=== PATIENT | male | born 1970 | race Caucasian/White ===

== ENCOUNTER 2021-02-27 08:34 | Outpatient (REF) | payer OTHER, SELFPAY ==
[2021-02-27 10:59] LABS: MANUAL DIFF FLAG NO
[2021-02-27 11:00] LABS: Basophils Absolute Auto 0.1 X10*3/uL (0.0-0.2); Basophils Percent Auto 1.2 % (0-2); Eosinophils Absolute Auto 0.1 X10*3/uL (0.0-0.4); Eosinophils Percent Auto 2.3 % (0-4); Hematocrit 44.8 % (42-52); Hemoglobin 14.8 g/dl (14.0-18.0); Imm Gran Abs Auto 0.01 X10*3/uL (0.00-0.03); Imm Gran Pct Auto 0.2 % (0.0-0.4); Lymphocytes Absolute Auto 1.7 X10*3/uL (1.2-4.9); Lymphocytes Percent Auto 32.8 % (20-40); Mean Corpuscular Hemoglobin 29.8 pg (27.0-33.0); Mean Corpuscular Volume 90.3 fL (80-98); Mean Platelet Volume 11.2 fL (9.4-12.4); Monocytes Absolute Auto 0.5 X10*3/uL (0.1-1.2); Monocytes Percent Auto 9.6 % (2-11); Neutrophils Absolute Auto 2.8 X10*3/uL (2.0-8.3); Neutrophils Percent Auto 53.9 % (45-73); Platelet Count 267 X10*3/uL (160-400); Red Blood Count 4.96 X10*6/uL (4.60-5.80); Red Cell Distribution Width 13.2 % (11.0-16.0); White Blood Count 5.2 X10*3/uL (4.8-10.8)
[2021-02-27 11:53] LABS: Alanine Aminotransferase 47 U/L (0-40); Albumin Level 4.5 g/dL (3.5-5.0); Alkaline Phosphatase 81 U/L (39-117); Anion Gap 14 (12-20); Aspartate Amino Transferase 30 U/L (5-37); Bilirubin Total 0.6 mg/dL (0.0-1.0); Blood Urea Nitrogen 22 mg/dL (9-16); Calcium 9.4 mg/dL (8.4-10.2); Carbon Dioxide 25 mmol/L (22-29); Chloride 108 mmol/L (96-108); Cholesterol 225 mg/dL; Estimated Glomerular Filt Rate > 60; Glucose Random 85 mg/dL (60-115); HDL Cholesterol 55 mg/dL; LDL Cholesterol Calculated 155 mg/dl; Potassium 4.4 mmol/L (3.3-5.1); Sodium 143 mmol/L (135-145); Total Protein 6.8 g/dL (6.5-8.0); Triglycerides 75 mg/dL
[2021-02-27 12:18] LABS: Prostate Specific Antigen 0.81 ng/mL (<0.05-4.0)
== END 2021-02-27 08:35 | disposition home or self-care (01) ==
LOC: HO.MANLDS 08:34
PROVIDERS: Visit Provider Internal Medicine
DX: Z00.01 Encounter for general adult medical examination with abnormal findings (principal); Z12.5 Encounter for screening for malignant neoplasm of prostate
CPT/HCPCS: 36415; 80053; 80061; 84153; 85025

== ENCOUNTER → 2023-01-03 07:48 | Outpatient (BNVA) | payer MEDICAID, SELFPAY | PROVIDERS: PCP Internal Medicine; Visit Provider Physician Assistant ==

== ENCOUNTER 2023-01-14 12:59 | Outpatient (REF) | payer MEDICAID, SELFPAY ==
[2023-01-15 15:28] LABS: H Pylori Breath Test Negative (Negative)
== END 2023-01-14 13:00 | disposition home or self-care (01) ==
LOC: HO.LNP 12:59
PROVIDERS: PCP Internal Medicine; Visit Provider Physician Assistant Surgical
DX: Z11.2 Encounter for screening for other bacterial diseases (principal); E66.9 Obesity, unspecified; E78.00 Pure hypercholesterolemia, unspecified
CPT/HCPCS: 83013; 99202; 99211

== ENCOUNTER 2023-01-19 07:27 | Outpatient (REF) | payer MEDICAID, SELFPAY ==
--- NOTE | ~2023-01-19 | XR_ITS ---
EXAMINATION: XR CHEST CLINICAL INFORMATION: Obesity. COMPARISON: None available. TECHNIQUE: 2 views of the chest were obtained. FINDINGS: There is elevation of the right hemidiaphragm with right lung base density likely related to atelectasis or scarring however, mass of other etiology cannot be excluded on this study. If patient has had studies at another institution, these would be of help in further evaluation. No pneumothorax or pleural effusion. Heart normal size. No evidence of pulmonary edema. XR/XR chest 2V IMPRESSION: Elevation of the right hemidiaphragm with some right lung base density as described for which comparison with prior studies from outside institution is recommended.
[2023-01-19 07:57] LABS: MANUAL DIFF FLAG NO
[2023-01-19 08:11] LABS: Basophils Absolute Auto 0.1 X10*3/uL (0.0-0.2); Basophils Percent Auto 1.1 % (0-2); Eosinophils Absolute Auto 0.1 X10*3/uL (0.0-0.4); Eosinophils Percent Auto 1.8 % (0-4); Hematocrit 47.3 % (42.0-52.0); Hemoglobin 15.9 g/dl (14.0-18.0); Imm Gran Abs Auto 0.01 X10*3/uL (0.00-0.03); Imm Gran Pct Auto 0.2 % (0.0-0.4); Lymphocytes Absolute Auto 2.1 X10*3/uL (1.2-4.9); Lymphocytes Percent Auto 32.1 % (20-40); Mean Corpuscular HGB Conc 33.6 g/dl (31.0-36.0); Mean Corpuscular Hemoglobin 29.6 pg (27.0-33.0); Mean Corpuscular Volume 88.1 fL (80.0-98.0); Mean Platelet Volume 11.2 fL (9.4-12.4); Monocytes Absolute Auto 0.5 X10*3/uL (0.1-1.2); Monocytes Percent Auto 7.6 % (2-11); Neutrophils Absolute Auto 3.8 x10*3/uL (2.0-8.3); Neutrophils Percent Auto 57.2 % (45-73); Platelet Count 247 X10*3/uL (160-400); Red Blood Count 5.37 X10*6/uL (4.60-5.80); Red Cell Distribution Width 12.2 % (11.0-16.0); White Blood Count 6.6 X10*3/uL (4.8-10.8)
[2023-01-19 08:34] LABS: Estimated Average Glucose 117 mg/dL; Hemoglobin A1c % 5.7 %
[2023-01-19 08:47] LABS: Alanine Aminotransferase 31 U/L (0-40); Albumin Level 4.6 g/dL (3.5-5.0); Alkaline Phosphatase 85 U/L (39-117); Anion Gap 16 (12-20); Aspartate Amino Transferase 26 U/L (5-37); Bilirubin Total 0.9 mg/dL (0.0-1.0); Blood Urea Nitrogen 21 mg/dL (9-16); C Reactive Protein 0.32 mg/dL (< or = 0.50); Calcium 9.9 mg/dL (8.4-10.2); Carbon Dioxide 25 mmol/L (22-29); Chloride 106 mmol/L (96-108); Cholesterol 261 mg/dL; Estimated Glomerular Filt Rate > 60; Glucose Random 91 mg/dL (60-115); HDL Cholesterol 44 mg/dL; Iron 106 mcg/dL (45-160); LDL Cholesterol Calculated 200 mg/dl; Percent Iron Saturation 30 % (15-50); Potassium 4.5 mmol/L (3.3-5.1); Sodium 142 mmol/L (135-145); Total Iron Binding Capacity 356 mcg/dL (228-428); Total Protein 7.2 g/dL (6.5-8.0); Triglycerides 87 mg/dL; Unsaturated Iron Binding 250 ug/dL
[2023-01-19 09:17] LABS: Ferritin 208 ng/mL (20-250); Folate 13.5 ng/mL (> or = 4.0); Insulin 11 uU/mL (2-29); TSH reflex Free T4 2.15 uIU/mL (0.32-4.0); Vitamin B12 712 pg/mL (200-900); Vitamin D 25-OH Total 23.2 ng/mL (>30)
[2023-01-21 15:24] LABS: Calcium (PTHI) 10.3 mg/dL (8.6-10.3); PTHI 68 pg/mL (16-77)
[2023-01-23 17:28] LABS: Zinc 93 mcg/dL (60-130)
[2023-01-25 08:38] LABS: Vitamin A 60 mcg/dL (38-98)
[2023-01-26 16:19] LABS: Vitamin B1 <6 nmol/L (8-30)
== END 2023-01-19 07:28 | disposition home or self-care (01) ==
LOC: HO.LAB 07:27
PROVIDERS: PCP Internal Medicine; Visit Provider Physician Assistant Surgical
DX: E66.9 Obesity, unspecified (principal); E78.00 Pure hypercholesterolemia, unspecified
CPT/HCPCS: 36415; 71046; 80053; 80061; 82306; 82607; 82728; 82746; 83036; 83525; 83540; 83970; 84425; 84443; 84590; 84630; 85025; 86140

== ENCOUNTER → 2023-01-24 15:32 | Outpatient (REF) | payer MEDICAID, SELFPAY ==
--- NOTE | 2023-01-24 15:35 | ECG_ITS ---
Test Reason : OBESITY Blood Pressure : / mmHG Vent. Rate : 073 BPM Atrial Rate : 073 BPM P-R Int : 146 ms QRS Dur : 084 ms QT Int : 368 ms P-R-T Axes : 010 035 032 degrees QTc Int : 405 ms Normal sinus rhythm Normal ECG No previous ECGs available Referred By: Dawson Xiao Electronically Signed By:JR BLANK
== END ==
LOC: HO.CARD 15:32
PROVIDERS: PCP Internal Medicine; Visit Provider Physician Assistant Surgical
DX: E66.9 Obesity, unspecified (principal); E78.00 Pure hypercholesterolemia, unspecified
CPT/HCPCS: 93005

== ENCOUNTER → 2023-01-28 13:53 | Outpatient (BNVA) | payer OTHER, MEDICAID, SELFPAY | PROVIDERS: PCP Internal Medicine; Visit Provider Counselor Mental Health ==

== ENCOUNTER → 2023-02-06 08:55 | Outpatient (BNVA) | payer MEDICAID, SELFPAY | PROVIDERS: PCP Internal Medicine; Visit Provider Physician Assistant Surgical ==

== ENCOUNTER → 2023-02-26 09:16 | Outpatient (BNVA) | payer MEDICAID, SELFPAY | PROVIDERS: PCP Internal Medicine; Referring Provider Physician Assistant Surgical; Visit Provider Dietitian, Registered | DX: E66.9 Obesity, unspecified (principal); Z68.35 Body mass index [BMI] 35.0-35.9, adult | CPT/HCPCS: 97802 ==

== ENCOUNTER 2023-02-28 07:20 | Outpatient (REF) | payer MEDICAID, SELFPAY ==
--- NOTE | ~2023-02-28 | CT_ITS ---
EXAMINATION: CT CHEST WITHOUT CONTRAST CLINICAL INFORMATION: Reason for Exam R93.89 - Abnormal findings on diagnostic imaging of other specified body... COMPARISON: None TECHNIQUE: Multidetector volumetric CT imaging of the chest was done. Axial MIP volume rendering provided. Sagittal and coronal reformatted images were obtained. This CT examination was performed using dose optimization techniques as appropriate, variously including the following: *Automated exposure control *Adjustment of mA and/or kV according to patient size (this includes techniques or standardized protocols for targeted exams where dose is matched to indication/reason for exam; i.e. extremities or head) *Use of iterative reconstruction technique DLP: 252 mGy-cm FINDINGS: CHEST WALL: Unremarkable. UPPER ABDOMEN: There is elevation of right hemidiaphragm and liver AXILLA: No lymphadenopathy. MEDIASTINUM: Heart is normal in size. No mediastinal lymphadenopathy. No hilar lymphadenopathy. There are no coronary artery calcifications or pericardial effusion PLEURA: There is no pleural effusion. OSSEOUS STRUCTURES: Unremarkable. LUNGS: There is atelectasis in the right lower lobe secondary to high-grade position hemidiaphragm There are no lung nodules or consolidations. CT/CT chest wo con - High Res IMPRESSION: Elevation of right hemidiaphragm with atelectasis in the right lower lobe.
== END 2023-02-28 07:21 | disposition home or self-care (01) ==
LOC: HO.CT 07:20
PROVIDERS: PCP Internal Medicine; Visit Provider Physician Assistant Surgical
DX: R93.89 Abnormal findings on diagnostic imaging of other specified body structures (principal)
CPT/HCPCS: 71250

== ENCOUNTER → 2023-03-07 10:00 | Outpatient (BNVA) | payer OTHER, MEDICAID, SELFPAY | PROVIDERS: PCP Internal Medicine; Visit Provider Counselor Mental Health ==

== ENCOUNTER 2023-03-18 08:46 | Outpatient (REF) | payer MEDICAID, SELFPAY | END 2023-03-18 08:47 | disposition home or self-care (01) | LOC: HO.XRAY 08:46 | PROVIDERS: PCP Internal Medicine; Visit Provider Physician Assistant Surgical | DX: E66.9 Obesity, unspecified (principal); E78.00 Pure hypercholesterolemia, unspecified | CPT/HCPCS: 74246 ==

== ENCOUNTER → 2023-03-22 12:11 | Outpatient (BNVA) | payer MEDICAID, SELFPAY | PROVIDERS: PCP Internal Medicine; Visit Provider Physician Assistant Surgical ==

== ENCOUNTER 2023-03-29 09:57 | Outpatient (REF) | payer MEDICAID, SELFPAY ==
--- NOTE | ~2023-03-29 | US_ITS ---
EXAMINATION: US COMPLETE ABDOMEN WITH LIVER ELASTOGRAPHY CLINICAL INFORMATION: Obesity. COMPARISON: None available. TECHNIQUE: Real-time imaging of the abdominal viscera. Noninvasive ultrasound liver fibrosis assessment is performed using Rae ElastPQ point quantification shear wave elastography (2D-SWE) with a C5-2 MHz transducer. Multiple elastography samples are obtained. FINDINGS: PANCREAS: Normal. The visualized pancreatic head and body are normal in appearance. The remainder of the pancreas is obscured from visualization by the overlying bowel gas. ABDOMINAL AORTA: The proximal, middle, and distal aortic segments are normal in caliber. INFERIOR VENA CAVA: Visualized portions are normal. LIVER: The liver demonstrates normal size, contour and increased echogenicity. No focal lesion or intrahepatic biliary duct dilatation. The right lobe measures 13.2 cm in length. The left lobe measures 8.6 cm in length. Portal flow is towards the liver (hepatopetal). Shear wave liver elastography median stiffness is 1.59 m/s (reference: normal median stiffness is 1.3 m/s or less). IQR/median stiffness to assess sampling precision is 0.05 (reference: good quality data set is IQR/median stiffness of 0.15 or less). GALLBLADDER: Normal. The gallbladder is physiologically distended without evidence of stones, sludge, polyps, wall thickening or pericholecystic fluid. COMMON BILE DUCT: Normal in caliber measuring 0.2 cm in diameter. RIGHT KIDNEY: At the upper pole, a 1.9 cm in maximal diameter mildly complex cyst is seen, with fine septation. This shows no mural nodularity or associated color Doppler flow. No hydronephrosis. No renal calculi or focal parenchymal lesions. The kidney measures 11.0 cm in maximum dimension. LEFT KIDNEY: At the upper pole, a 1.2 cm maximal diameter benign, simple parapelvic cyst is seen. No hydronephrosis. No renal calculi or focal parenchymal lesions. The kidney measures 11.7 cm in maximum dimension. SPLEEN: Normal. The spleen measures 11.0 cm in maximum dimension. FREE FLUID: None. US/US abdomen comp w elastography IMPRESSION: 1. Impression 2. Liver elastography: REFERENCE: Society of Radiologists in Ultrasound Liver Stiffness Thresholds (2019): LIVER STIFFNESS THRESHOLDS: *Liver Stiffness equal or less than 1.3 m/s: High probability of being normal. *Liver Stiffness less than 1.7 m/s: In the absence of other known clinical signs, rules out compensated advanced chronic liver disease. *Liver Stiffness 1.7-2.1 m/s: Suggestive of compensated advanced chronic liver disease but need further test for confirmation. *Liver Stiffness over 2.1 m/s: Rules in compensated advanced chronic liver disease. *Liver Stiffness over 2.4 m/s: Suggestive of clinically significant portal hypertension. QUALITY OF DATA SET: *IQR/Median value equal or less than 0.15 implies a quality data set. *IQR/Median value over 0.15 implies a poor quality data set. SIGNIFICANT CHANGE FROM PRIOR EXAM: Significant change if liver stiffness measurement is 10% or greater from prior exam. OTHER CONSIDERATIONS: The stage of liver fibrosis may be overestimated in the setting of acute hepatitis, liver inflammation, elevated liver function tests, hepatic vascular congestion, obstructive cholestasis, non-fasting state, and infiltrative diseases such as amyloidosis and lymphoma. In some patients with NAFLD, the liver stiffness thresholds for compensated advanced chronic liver disease may be lower. In causes other than viral hepatitis and NAFLD, liver stiffness thresholds are not well established.
== END 2023-03-29 09:58 | disposition home or self-care (01) ==
LOC: HO.US 09:57
PROVIDERS: PCP Internal Medicine; Visit Provider Physician Assistant Surgical
DX: E66.9 Obesity, unspecified (principal); E78.00 Pure hypercholesterolemia, unspecified
CPT/HCPCS: 76705; 76981

== ENCOUNTER 2023-04-08 08:54 | Outpatient (AMB) | payer MEDICAID, SELFPAY ==
[2023-04-08 08:56] VITALS: BP 117/74; PULSE 71; O2SAT 96; BMI 34.3
--- NOTE | 2023-04-08 08:56 | A.OFFVIS_ITS ---
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 Father No problems noted. Brother No problems noted. Daughter ADHD Daughter No problems noted. Son ADHD Social History Alcohol intake: current Alcohol intake frequency: a few times a week Patient Tobacco Use Status: Never used Tobacco Coding Diagnoses
--- NOTE | 2023-04-08 09:04 | A.OFFVIS_ITS ---
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 He entered the surgical weight loss program 01/14/2023 at a weight of 258 lb/BMI of 38.0 with a comorbidity of obstructive sleep apnea and hypercholesterolemia. He is congratulated on his interval weight loss and presents today with a weight of 232 lb/BMI 34.3. Patient is interested in a laparoscopic sleeve gastrectomy. He denies prior intra abdominal operations. Pre op work up completed as follows: SWL classes:? 04/23 BH appts: cleared-03/07/23 ? ? RD appts: cleared-02/26/23 Labs: 01/19/23-low B1, D H. pylori: 01/14/23-neg CXR: 01/19/23-RLL atel/scar/?mass - CT ordered 02/28/23-atelectasis due to elevated hemidiaphragm EK01/24/23-normal ABD U/S: 03/29/23 pending read UGI: 03/18/23-normal GERD score: 8 VALE score: 5 ESS score: 3 QOL score: 91?? PFSH Surgical History Hx of sinus surgery Hx of wisdom tooth extraction Family History Mother No problems noted. Father No problems noted. Brother No problems noted. Daughter ADHD Daughter No problems noted. Son ADHD Social History Alcohol intake: current Alcohol intake frequency: a few times a week Patient Tobacco Use Status: Never used Tobacco Review of Systems Const All systems reviewed & are unremarkable except as noted in HPI and below Reports as per HPI Physical Exam Vital Signs: Last Vital Signs Pulse 71 04/08/23 08:56 BP 117/74 04/08/23 08:56 Pulse Ox 96 04/08/23 08:56 Oxygen Delivery Method Room Air 04/08/23 08:56 BMI result Body Mass Index 34.3 The patient is non-toxic & in good spirits NC/AT, PERRLA, EOMI Mood, affect & judgment all appear appropriate Sclera anicteric conjunctiva pink and moist Oropharynx is clear with no aphthous ulcers, Mallampati class 4, mucous membranes moist Neck is supple with no masses, adenopathy or bruits Thyroid is nontender and free of dominant masses Heart is regular, normal S1-S2 no rubs or murmurs Lungs are clear and equal anteriorly with no audible wheezing, rubs or dullness to percussion Abdomen is overweight with no demonstrable hernias. No HSM, rebound, rigidity, guarding, masses or bruits are present. Rectal exam is deferred Skin has good turgor and is free of rashes Extremities free of cyanosis clubbing edema Results Reviewed Results Reviewed: Labs from 01/19/2023 Hemoglobin 15.9 with normal indices and normal iron studies, white blood cell count 6.6 with normal differential, platelet count 247k Cholesterol is elevated at 261 Vitamin B1 and vitamin D were low in have been treated BUN 21, creatinine 0.97; electrolytes and LFTs within normal parameters Hemoglobin A1c 5.7 Diagnostic imaging 03/29 Upper GI showed no GERD nor hiatal hernia Chest x-ray showed elevated right hemidiaphragm with atelectasis and follow-up chest CT showed no evidence of mass, just chronic right hemidiaphragm elevation Abdominal ultrasound showedNAFLD in final impression is pending as of today's visit Assessment & Plan Assessment & Plan (1) Obesity (BMI 30-39.9): Code(s): E66.9 - Obesity, unspecified (2) MARY (obstructive sleep apnea): Comment: [place] [facility] [place]s): G47.33 - Obstructive sleep apnea (adult) (pediatric) (3) Hypercholesterolemia: Code(s): E78.00 - Pure hypercholesterolemia, unspecified (4) Class 2 obesity in adult: Code(s): E66.9 - Obesity, unspecified (5) Abnormal chest xray: Code(s): R93.89 - Abnormal findings on diagnostic imaging of other specified body structures Plan The patient is congratulated on his healthy lifestyle changes and subsequent when loss. The option of continued medical management was discussed but declined by the patient noting his prior history of weight regain. Options of gastric bypass, sleeve gastrectomy and 2nd opinion were discussed. The patient would like to proceed with a laparoscopic sleeve gastrectomy with p ossible hiatal hernia repair, intraoperative upper endoscopy and possible ventral hernia repair. I reviewed the inherent risks of this procedure which include, but are not limited to: Bleeding that could require another operation or blood transfusion; the inherent risks of transfusion reaction infectious disease from blood transfusions; the risk of staple line leaks that could cause sepsis, multi- system organ failure and ; the risk of mesenteric or deep vein thrombosis of the lower extremities that could cause a fatal pulmonary embolism was reviewed; the risk of GERD that could require conversion to gastric bypass was discussed; the risk of recurrent hiatal hernia, especially in the setting of weight regain was reviewed. The risk of weight regain if maladaptive eating and sedentary behavior continue was discussed. The importance of proper diet and increased activity to augment surgical weight loss and the fact that no operation would result in weight loss of poor dietary decisions and sedentary behavior are resumed were discussed at length and apparently understood. The patient had the option of having a systems analyst developer present and declined this option. The patient will have a follow-up 30 minute visit with me as per his insurance requirement; he will write down and ask any questions between now and then. He has a follow-up with the PA. The importance of the liver shrinking diet was reviewed. Coding Level of Care Code Est Pt Level 4 (19963) Diagnoses Obesity (BMI 30-39.9) E66.9 MARY (obstructive sleep apnea) G47.33 Hypercholesterolemia E78.00 Class 2 obesity in adult E66.9 Abnormal chest xray R93.89
== END 2023-04-08 09:39 | disposition home or self-care (01) ==
PROVIDERS: PCP Internal Medicine; Visit Provider Surgery
DX: E66.9 Obesity, unspecified (principal); Z68.34 Body mass index [BMI] 34.0-34.9, adult; G47.33 Obstructive sleep apnea (adult) (pediatric); E78.00 Pure hypercholesterolemia, unspecified; R93.89 Abnormal findings on diagnostic imaging of other specified body structures
CPT/HCPCS: 99214

== ENCOUNTER → 2023-04-08 08:54 | Outpatient (BNVA) | payer MEDICAID, SELFPAY | PROVIDERS: PCP Internal Medicine; Visit Provider Surgery | DX: E66.9 Obesity, unspecified (principal); G47.33 Obstructive sleep apnea (adult) (pediatric); E78.00 Pure hypercholesterolemia, unspecified; R93.89 Abnormal findings on diagnostic imaging of other specified body structures; Z68.34 Body mass index [BMI] 34.0-34.9, adult | CPT/HCPCS: 99212 ==

== ENCOUNTER 2023-05-17 07:44 | Outpatient (AMB) | payer MEDICAID, SELFPAY ==
--- NOTE | 2023-05-17 07:45 | A.OFFVIS_ITS ---
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: No Allergies No Known Allergies [No Known Allergies*] Allergy (Verified 05/17/23 07:45) Medication List - Last Reconciled 05/17/23 by Eric Snow MD cholecalciferol (vitamin D3) 125 mcg PO DAILY thiamine HCl (vitamin B1) 100 mg PO DAILY 90 days HPI HPI Comments History of Present Illness Details Telehealth Telehealth Location of provider rendering services: practice address Location of patient: address on file Patient Identification confirmed using: Name, : Yes Telehealth method: video Patient verbally consented to treatment: Yes Patient verbally consented to billing insurance company: Yes Patient informed of any privacy concerns related to visit: Yes The patient is a 52-year-old gentleman with a lifelong struggle with obesity who reports a heaviest weight of 270 lb earlier this year. He entered the surgical weight loss program 01/14/2023 at a weight of 258 lb/BMI of 38.0 with a comorbidity of obstructive sleep apnea and hypercholesterolemia. We discussed interval weight gain reports a weight of 236.4 lb/BMI 35.0. This is up 4 lbs from his last office visit, however, the patient notes that there was a 2 lb difference which was higher on his home scale verses the office [place] weights/BMI, and he acknowledged that his exercises currently sporadic and that he is not been following the diet at this point. We again reviewed the importance of diet and exercise to optimize surgical weight loss. We discussed the fact that he is not currently engaged in following the diet nor exercise regime. He notes that he has instructions regarding his meal plan and will resume and refocus and remains interested in surgical weight loss rather than medical weight loss. Patient is interested in a laparoscopic sleeve gastrectomy. He denies prior intra abdominal operations. Pre op work up completed as follows: SWL classes:? 04/23 BH appts: cleared-03/07/23 ? ? RD appts: cleared-02/26/23 Labs: 01/19/23-low B1, D H. pylori: 01/14/23-neg CXR: 01/19/23-RLL atelectasis/scar/?mass - CT chest : atelectasis due to elevated hemidiaphragm EK01/24/23-normal ABD U/S: 03/29/23 NAFLD, right renal cyst UGI: 03/18/23-no NN nor GERD GERD score: 8 VALE score: 5 ESS score: 3 QOL score: 91??Current meal plan includes: 3 Premier Protein shakes ([employer], [employer], [employer]) First shake (1 scoop in 8 oz low fat unsweetened almond milk, may add ice if you wish) at 8am-10am Second shake (1 scoop in 8 oz unsweetened almond milk) at 12pm-2pm 1 protein bar ([employer] Perfect bars at [employer], [employer], or [employer]) at 3pm-5pm. Dinner at 6pm (8 forks of protein and 8 forks of salad/vegetables). Another shake with 1 scoop in 8 oz unsweetened almond milk at 8pm-10pm. Drinking 64 oz of water Current exercise plan includes: Not currently exercising elliptical, bike, 300-400 calories, 4-5 days per week. PFSH Surgical History Hx of sinus surgery Hx of wisdom tooth extraction Family History Mother No problems noted. Father No problems noted. Brother No problems noted. Daughter ADHD Daughter No problems noted. Son ADHD Social History Alcohol intake: current Alcohol intake frequency: a few times a week Patient Tobacco Use Status: Never used Tobacco Review of Systems Const All systems reviewed & are unremarkable except as noted in HPI and below Reports as per HPI Physical Exam On telehealth visit, the patient is comfortable and nontoxic He appears to be in no acute distress Results Reviewed Results Reviewed: Labs from 01/19/2023 Hemoglobin 15.9 with normal indices and normal iron studies, white blood cell count 6.6 with normal differential, platelet count 247k Cholesterol is elevated at 261 Vitamin B1 and vitamin D were low in have been treated BUN 21, creatinine 0.97; electrolytes and LFTs within normal parameters Hemoglobin A1c 5.7 Diagnostic imaging 03/29 Upper GI showed no GERD nor hiatal hernia Chest x-ray showed elevated right hemidiaphragm with atelectasis and follow-up chest CT showed no evidence of mass, just chronic right hemidiaphragm elevation Abdominal ultrasound showedNAFLD in final impression is pending as of today's visit Assessment & Plan Assessment & Plan (1) Class 2 obesity in adult: Code(s): E66.9 - Obesity, unspecified (2) MARY (obstructive sleep apnea): Comment: On CPAP, [place] 2018 [place] [facility] [place] Code(s): G47.33 - Obstructive sleep apnea (adult) (pediatric) (3) Hypercholesterolemia: Code(s): E78.00 - Pure hypercholesterolemia, unspecified (4) Obesity (BMI 30-39.9): Code(s): E66.9 - Obesity, unspecified (5) Diaphragm dysfunction: Code(s): J98.6 - Disorders of diaphragm (6) Abnormal chest xray: Code(s): R93.89 - Abnormal findings on diagnostic imaging of other specified body structures Plan The patient will resume his meal plan as outlined above. He will continue to focus on exercise. We will touch base with him in 2 weeks for a 30 minute since he acknowledges weight gain and that he is not currently following the diet or exercise program. Telehealth Telehealth Location of provider rendering services: practice address Location of patient: address on file Patient Identification confirmed using: Name, : Yes Telehealth method: voice only Patient verbally consented to treatment: Yes Patient verbally consented to billing insurance company: Yes Patient informed of any privacy concerns related to visit: Yes Coding Level of Care Code Tele New Pt Level 4 (35706) Diagnoses Class 2 obesity in adult E66.9 MARY (obstructive sleep apnea) G47.33 Hypercholesterolemia E78.00 Obesity (BMI 30-39.9) E66.9 Diaphragm dysfunction J98.6 Abnormal chest xray R93.89
== END 2023-05-17 09:07 | disposition home or self-care (01) ==
LOC: HO.HBS 07:44
PROVIDERS: PCP Internal Medicine; Visit Provider Surgery
DX: E66.9 Obesity, unspecified (principal); Z68.35 Body mass index [BMI] 35.0-35.9, adult; G47.33 Obstructive sleep apnea (adult) (pediatric); E78.00 Pure hypercholesterolemia, unspecified; J98.6 Disorders of diaphragm; R93.89 Abnormal findings on diagnostic imaging of other specified body structures
CPT/HCPCS: 99214

== ENCOUNTER → 2023-05-17 07:44 | Outpatient (BNVA) | payer MEDICAID, SELFPAY | PROVIDERS: PCP Internal Medicine; Visit Provider Surgery ==

== ENCOUNTER 2023-05-24 08:19 | Outpatient (AMB) | payer MEDICAID, SELFPAY ==
--- NOTE | 2023-05-24 08:21 | MHC.OFFVISWM ---
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 Allergies No Known Allergies [No Known Allergies*] Allergy (Verified 05/24/23 08:22) Medication List - Last Reconciled 05/24/23 by Eric Snow MD cholecalciferol (vitamin D3) 125 mcg PO DAILY thiamine HCl (vitamin B1) 100 mg PO DAILY 90 days HPI HPI Comments History of Present Illness Details Telehealth Telehealth Location of provider rendering services: practice address Location of patient: address on file Patient Identification confirmed using: Name, : Yes Telehealth method: video Patient verbally consented to treatment: Yes Patient verbally consented to billing insurance company: Yes Patient informed of any privacy concerns related to visit: Yes The patient is a 52-year-old gentleman with a lifelong struggle with obesity who reports a heaviest weight of 270 lb earlier this year. He entered the surgical weight loss program 01/14/2023 at a weight of 258 lb/BMI of 38.0 with a comorbidity of obstructive sleep apnea and hypercholesterolemia. We discussed interval weight gain last visit when he reported a weight of 234 lb/BMI 35.0 for today's tele visit 05/24/2023.,\ He notes that this is his 3rd bout with COVID and, as expected, it is impacted his ability to exercise. Prior to this, he was both walk and using an exercise bike. Current meal plan includes: 3 Premier Protein shakes ([employer], [employer], [employer]) First shake (1 scoop in 8 oz low fat unsweetened almond milk, may add ice if you wish) at 8am-10am Second shake (1 scoop in 8 oz unsweetened almond milk) at 12pm-2pm 1 protein bar (Zone Perfect bars at [employer], [employer], or [employer]) at 3pm-5pm. Dinner at 6pm (8 forks of protein and 8 forks of salad/vegetables). Another shake with 1 scoop in 8 oz unsweetened almond milk at 8pm-10pm. Drinking 64 oz of water Exercise plan: Bike, walking We discussed the fact that he has resumed the meal plan & was exercising until COVID. He remains interested in surgical weight loss rather than medical weight loss. Patient is interested in a laparoscopic sleeve gastrectomy. He denies prior intra abdominal operations. Pre op work up completed as follows: SWL classes:? 04/23 BH appts: cleared-03/07/23 ? ? RD appts: cleared-02/26/23 Labs: 01/19/23-low B1, D H. pylori: 01/14/23-neg CXR: 01/19/23-RLL atelectasis/scar/?mass - CT chest : atelectasis due to elevated hemidiaphragm EK01/24/23-normal ABD U/S: 03/29/23 NAFLD, right renal cyst UGI: 03/18/23-no NN nor GERD GERD score: 8 VALE score: 5 ESS score: 3 QOL score: 91?? Current meal plan includes: 3 Premier Protein shakes ([employer], [employer], [employer]) First shake (1 scoop in 8 oz low fat unsweetened almond milk, may add ice if you wish) at 8am-10am Second shake (1 scoop in 8 oz unsweetened almond milk) at 12pm-2pm 1 protein bar (Zone Perfect bars at [employer], [facility], or [employer]) at 3pm-5pm. Dinner at 6pm (8 forks of protein and 8 forks of salad/vegetables). Another shake with 1 scoop in 8 oz unsweetened almond milk at 8pm-10pm. Drinking 64 oz of water Current exercise plan includes: elliptical, bike, 300-400 calories, 4-5 days per week, but currently only walking d/t COVID [facility] Surgical History Hx of sinus surgery Hx of wisdom tooth extraction Family History Mother No problems noted. Father No problems noted. Brother No problems noted. Daughter ADHD Daughter No problems noted. Son ADHD Social History Alcohol intake: current Alcohol intake frequency: a few times a week Patient Tobacco Use Status: Never used Tobacco Review of Systems Const All systems reviewed & are unremarkable except as noted in HPI and below Reports as per HPI Physical Exam On exam, the patient appears nontoxic and he is in no acute respiratory distress Video visit today included permission from the patient Results Reviewed Results Reviewed: Labs from 01/19/2023 Hemoglobin 15.9 with normal indices and normal iron studies, white blood cell count 6.6 with normal differential, platelet count 247k Cholesterol is elevated at 261 Vitamin B1 and vitamin D were low in have been treated BUN 21, creatinine 0.97; electrolytes and LFTs within normal parameters Hemoglobin A1c 5.7 Diagnostic imaging 03/29 Upper GI showed no GERD nor hiatal hernia Chest x-ray showed elevated right hemidiaphragm with atelectasis and follow-up chest CT showed no evidence of mass, just chronic right hemidiaphragm elevation Abdominal ultrasound showedNAFLD in final impression is pending as of today's visit Assessment & Plan Assessment & Plan (1) Class 2 obesity in adult: Code(s): E66.9 - Obesity, unspecified (2) MARY (obstructive sleep apnea): Comment: On CPAP, Dx 2018 [place] [facility] [place] Code(s): G47.33 - Obstructive sleep apnea (adult) (pediatric) (3) Hypercholesterolemia: Code(s): E78.00 - Pure hypercholesterolemia, unspecified (4) Abnormal chest xray: Code(s): R93.89 - Abnormal findings on diagnostic imaging of other specified body structures (5) Diaphragm dysfunction: Code(s): J98.6 - Disorders of diaphragm (6) Obesity (BMI 30-39.9): Code(s): E66.9 - Obesity, unspecified Plan The patient is congratulated on his ongoing healthy lifestyle changes and he is 1 lb weight from his weight loss goal of 233 lb. His unfortunate 3rd infection with COVID is challenging at this point, but I believe he has made enough progress that we can submit for insurance. We briefly reviewed the risks of a laparoscopic sleeve gastrectomy, possible hiatal hernia repair, intraoperative upper endoscopy, ventral hernia repair and possible open operation. The importance of hydration to prevent DVT and fatal PE was reviewed. Activity restrictions were reviewed and I have recommended the patient notify his employer that he will likely need between 1-2 weeks out which should include the 2 day bowel prep. The importance of following the meal plan and engaging in activity/exercise to optimize and promote surgical weight loss was reviewed. The patient seemed understand and would like to proceed. Second opinion was discussed but declined. Time spent on video in reviewing records: 26 minute Telehealth Telehealth Location of provider rendering services: practice address Location of patient: address on file Patient Identification confirmed using: Name, : Yes Telehealth method: voice only Patient verbally consented to treatment: Yes Patient verbally consented to billing insurance company: Yes Patient informed of any privacy concerns related to visit: Yes Coding Level of Care Code Tele Est Pt Level 4 (63886) Diagnoses Class 2 obesity in adult E66.9 MARY (obstructive sleep apnea) G47.33 Hypercholesterolemia E78.00 Abnormal chest xray R93.89 Diaphragm dysfunction J98.6 Obesity (BMI 30-39.9) E66.9
== END 2023-05-24 09:25 | disposition home or self-care (01) ==
PROVIDERS: PCP Internal Medicine; Visit Provider Surgery
DX: E66.9 Obesity, unspecified (principal); Z68.35 Body mass index [BMI] 35.0-35.9, adult; G47.33 Obstructive sleep apnea (adult) (pediatric); E78.00 Pure hypercholesterolemia, unspecified; R93.89 Abnormal findings on diagnostic imaging of other specified body structures; J98.6 Disorders of diaphragm
CPT/HCPCS: 99214

== ENCOUNTER → 2023-05-24 08:19 | Outpatient (BNVA) | payer MEDICAID, SELFPAY | PROVIDERS: PCP Internal Medicine; Visit Provider Surgery | DX: E66.9 Obesity, unspecified (principal); G47.33 Obstructive sleep apnea (adult) (pediatric); E78.00 Pure hypercholesterolemia, unspecified; J98.6 Disorders of diaphragm; R93.89 Abnormal findings on diagnostic imaging of other specified body structures ==

== ENCOUNTER 2023-06-07 10:01 | Outpatient (AMB) | payer MEDICAID, SELFPAY ==
--- NOTE | 2023-06-07 09:43 | A.OFFVIS_ITS ---
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 meal plan: Premier protein shakes meal Drinkin oz daily Exercise: baseball, pickleball treadmill 2 x per week, 400 calories. PFSH Surgical History Hx of sinus surgery Hx of wisdom tooth extraction Family History Mother No problems noted. Father No problems noted. Brother No problems noted. Daughter ADHD Daughter No problems noted. Son ADHD Social History Alcohol intake: current Alcohol intake frequency: a few times a week Patient Tobacco Use Status: Never used Tobacco Assessment & Plan Assessment & Plan (1) Obesity (BMI 30-39.9): Code(s): E66.9 - Obesity, unspecified Plan: 1. Start this meal plan on 07/12/23, approximately 2 weeks prior to surgery. Using Premier Protein powder and 8 oz unsweetened almond milk per shake: 8am-10am, 1 and 1/2 scoops 11 am-1pm, 1 and 1/2 scoops 3pm-5pm, 1 scoop 6pm-8pm, 1 scoop 9pm-11pm, 1 scoop 2. Drink at least 64 oz fluids daily. NO SODA OR JUICE. NO CAFFEINE 3. Continue to take your vitamins as you have been doing 4. No ALCOHOLIC beverages 5. No Advil, Motirn, Aleve or NSAIDS 6. Midnight on the night before surgery, nothing by mouth to eat or drink except as specifically advised by your surgeon for medications in the morning with a small sip of water. 7. Text me if you have any questions or concerns. [phone] Telehealth Telehealth Location of provider rendering services: practice address Location of patient: address on file Patient Identification confirmed using: Name, : Yes Telehealth method: video Patient verbally consented to treatment: Yes Patient verbally consented to billing insurance company: Yes Patient informed of any privacy concerns related to visit: Yes Minutes spent on Phone/Video with Pt.: 15 Coding Level of Care Code Tele Est Pt Level 3 (69463) Diagnoses Obesity (BMI 30-39.9) E66.9 Time Spent (min) 20
[2023-06-07 09:44] VITALS: BMI 34.7
== END 2023-06-07 10:03 | disposition home or self-care (01) ==
LOC: HO.HBS 10:01
PROVIDERS: PCP Internal Medicine; Visit Provider Physician Assistant Surgical
DX: E66.9 Obesity, unspecified (principal)
CPT/HCPCS: 99213

== ENCOUNTER → 2023-06-07 10:01 | Outpatient (BNVA) | payer MEDICAID, SELFPAY | PROVIDERS: PCP Internal Medicine; Visit Provider Physician Assistant Surgical ==

== ENCOUNTER 2023-06-20 10:50 | Outpatient (AMB) | payer MEDICAID, SELFPAY ==
--- NOTE | 2023-06-20 10:53 | MHC.OFFVISWM ---
Intake VS Expanded 06/20/23 11:03 BP 114/75 Blood Pressure Location Rt brachial Pulse 79 Pulse Source Pulse Oximeter Temp 97.6 F Temperature Source Tympanic Pulse Oximetry 96 Oxygen Delivery Method Room Air Height 5 ft 9 in Weight 236 lb BMI 34.8 Body Fat % 96 Body Fat Mass 71.2 Fat Free Mass 164.6 Visceral Fat Rating 16.0 Body Water % 50.5 Body Water Mass 119.0 Muscle Mass/Score 156.6 Basal Metabolic Rate/Score 2,224 Intake Visit Reasons: (OV) Pre Op LSG 07/10/23 Station Superintendent Required: No Sole Stapler Welt: Sole Stapler Welt offered & declined Allergies No Known Allergies [No Known Allergies*] Allergy (Verified 06/20/23 10:57) HPI HPI Comments History of Present Illness Details The patient is a 52-year-old gentleman with a lifelong struggle with obesity who reports a heaviest weight of 270 lb earlier this year. He entered the surgical weight loss program 01/14/2023 at a weight of 258 lb/BMI of 38.0 with a comorbidity of obstructive sleep apnea and hypercholesterolemia. He is congratulated on his interval weight loss and presents today with a weight of 236.0 lb/BMI 34.9 representing a 22 lb weight loss since entering the program. Patient is interested in a laparoscopic sleeve gastrectomy. He has received liver-shrinking diet instruction; pre-op labs ordered & prescriptions were sent to the pt's pharmacy yesterday. He denies prior intra abdominal operations. GERD score: 8 VALE score: 5 ESS score: 3 QOL score: 91?? Pre op work up completed as follows: SWL classes:? 04/23 BH appts: cleared-03/07/23 ? ? RD appts: cleared-02/26/23 Labs: 01/19/23-low B1, D H. pylori: 01/14/23-neg CXR: 01/19/23-RLL atelectasis/scar/?mass - CT chest : atelectasis due to elevated hemidiaphragm EK01/24/23-normal ABD U/S: 03/29/23 NAFLD, right renal cyst UGI: 03/18/23-no NN nor GERD PFSH Surgical History Hx of sinus surgery Hx of wisdom tooth extraction Family History Mother No problems noted. Father No problems noted. Brother No problems noted. Daughter ADHD Daughter No problems noted. Son ADHD Social History Alcohol intake: current Alcohol intake frequency: a few times a week Patient Tobacco Use Status: Never used Tobacco Physical Exam On exam he is non-toxic He is in no acute distress He is comfortable He is having no respiratory distress Abd is obese soft, NT hernia ____ Results Reviewed Results Reviewed: Labs from 01/19/2023 Hemoglobin 15.9 with normal indices and normal iron studies, white blood cell count 6.6 with normal differential, platelet count 247k Cholesterol is elevated at 261 Vitamin B1 and vitamin D were low in have been treated BUN 21, creatinine 0.97; electrolytes and LFTs within normal parameters Hemoglobin A1c 5.7 Diagnostic imaging 03/29 Upper GI showed no GERD nor hiatal hernia Chest x-ray showed elevated right hemidiaphragm with atelectasis and follow-up chest CT showed no evidence of mass, just chronic right hemidiaphragm elevation Abdominal ultrasound showed NAFLD borderline liver elastography at 1.6 but no HSM Assessment & Plan Assessment & Plan (1) Obesity (BMI 30-39.9): Code(s): E66.9 - Obesity, unspecified (2) Hypercholesterolemia: Code(s): E78.00 - Pure hypercholesterolemia, unspecified (3) MARY (obstructive sleep apnea): Comment: On CPAP, Dx 2018 at [facility] [place] Code(s): G47.33 - Obstructive sleep apnea (adult) (pediatric) (4) Abnormal chest xray: Code(s): R93.89 - Abnormal findings on diagnostic imaging of other specified body structures (5) Class 2 obesity in adult: Code(s): E66.9 - Obesity, unspecified Plan The pt is congratulated on his ongoing life-style changes & weight loss. Options including continued medical management, 2nd opinion versus bariatric surgery, including gastric bypass or sleeve gastrectomy was reviewed. The patient seemed understand his options and would like to proceed with a laparoscopic sleeve gastrectomy, possible hiatal hernia repair, intraoperative upper endoscopy, possible ventral hernia repair. I reviewed the inherent risks of this procedure which include, but are not limited to: Bleeding that could require another operation or blood transfusion; the inherent risks of transfusion reaction infectious disease from blood transfusions; the risk of staple line leaks that could cause sepsis, multi-system organ failure and ; the risk of mesenteric or deep vein thrombosis of the lower extremities that could cause a fatal pulmonary embolism was reviewed; the risk of GERD that could require conversion to gastric bypass was discussed; the risk of recurrent hiatal hernia, especially in the setting of weight regain was reviewed. The risk of weight regain if maladaptive eating and sedentary behavior continue was discussed. The importance of proper diet and increased activity to augment surgical weight loss and the fact that no operation would result in weight loss of poor dietary decisions and sedentary behavior are resumed were discussed at length and apparently understood. The patient had the option of having a shift supervisor film processing present and declined this option. Risks of urinary retention were also discussed and the possible need for Hansen catheter, but the patient is having absolutely no symptoms of BPH so this is unlikely. The importance of adhering to the liver shrinking diet was discussed; bowel prep and typical perioperative/postoperative course including the importance of early ambulation, hydration, postoperative celebrate 4 in 1 protein shakes, postoperative activity restrictions to minimize risk of incisional hernia were all discussed and apparently understood. 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 The importance of 60 oz of water and protein shake sickle was reviewed. Patient is advised to purchase his protein shakes today. Patient was provided with a business card having my cell phone number. The patient's insurance required a 90 day script for PPI which was sent to his pharmacy and the patient notified. I reminded the patient that I will be out of the office for 2 week time frame and if he needs has questions or needs assistance during that time, he should contact the office or text Dawson Xiao PA-C who has been helping with his bariatric workup and meal plan. 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 He seemed understand the importance, options and his questions seemed to be satisfactorily answered. Orders: Orders Comprehensive Met. Panel 06/19/23 E66.9 - Obesity, unspecified, E78.00 - Pure hypercholesterolemia, unspecified, G47.33 - Obstructive sleep apnea (adult) (pediatric), J98.6 - Disorders of diaphragm Hemoglobin A1c 06/19/23 E66.9 - Obesity, unspecified, E78.00 - Pure hypercholesterolemia, unspecified, G47.33 - Obstructive sleep apnea (adult) (pediatric), J98.6 - Disorders of diaphragm Prothrombin Time INR 06/19/23 E66.9 - Obesity, unspecified, E78.00 - Pure hypercholesterolemia, unspecified, G47.33 - Obstructive sleep apnea (adult) (pediatric), J98.6 - Disorders of diaphragm Lipid Panel 06/19/23 E66.9 - Obesity, unspecified, E78.00 - Pure hypercholesterolemia, unspecified, G47.33 - Obstructive sleep apnea (adult) (pediatric), J98.6 - Disorders of diaphragm PTHI 06/19/23 E66.9 - Obesity, unspecified, E78.00 - Pure hypercholesterolemia, unspecified, G47.33 - Obstructive sleep apnea (adult) (pediatric), J98.6 - Disorders of diaphragm Vitamin D 25-OH Total 06/19/23 E66.9 - Obesity, unspecified, E78.00 - Pure hypercholesterolemia, unspecified, G47.33 - Obstructive sleep apnea (adult) (pediatric), J98.6 - Disorders of diaphragm Zinc 06/19/23 E66.9 - Obesity, unspecified, E78.00 - Pure hypercholesterolemia, unspecified, G47.33 - Obstructive sleep apnea (adult) (pediatric), J98.6 - Disorders of diaphragm TSH reflex Free T4 06/19/23 E66.9 - Obesity, unspecified, E78.00 - Pure hypercholesterolemia, unspecified, G47.33 - Obstructive sleep apnea (adult) (pediatric), J98.6 - Disorders of diaphragm IRON PROFILE 06/19/23 E66.9 - Obesity, unspecified, E78.00 - Pure hypercholesterolemia, unspecified, G47.33 - Obstructive sleep apnea (adult) (pediatric), J98.6 - Disorders of diaphragm Vitamin A 06/19/23 E66.9 - Obesity, unspecified, E78.00 - Pure hypercholesterolemia, unspecified, G47.33 - Obstructive sleep apnea (adult) (pediatric), J98.6 - Disorders of diaphragm Type and Screen 10/04/23 E66.9 - Obesity, unspecified, E78.00 - Pure hypercholesterolemia, unspecified, G47.33 - Obstructive sleep apnea (adult) (pediatric), J98.6 - Disorders of diaphragm Vitamin B1 06/19/23 E66.9 - Obesity, unspecified, E78.00 - Pure hypercholesterolemia, unspecified, G47.33 - Obstructive sleep apnea (adult) (pediatric), J98.6 - Disorders of diaphragm C Reactive Protein 06/19/23 E66.9 - Obesity, unspecified, E78.00 - Pure hypercholesterolemia, unspecified, G47.33 - Obstructive sleep apnea (adult) (pediatric), J98.6 - Disorders of diaphragm Partial Thromboplastin Time 06/19/23 E66.9 - Obesity, unspecified, E78.00 - Pure hypercholesterolemia, unspecified, G47.33 - Obstructive sleep apnea (adult) (pediatric), J98.6 - Disorders of diaphragm Vitamin B12 06/19/23 E66.9 - Obesity, unspecified, E78.00 - Pure hypercholesterolemia, unspecified, G47.33 - Obstructive sleep apnea (adult) (pediatric), J98.6 - Disorders of diaphragm Complete Blood Count Auto Diff 06/19/23 E66.9 - Obesity, unspecified, E78.00 - Pure hypercholesterolemia, unspecified, G47.33 - Obstructive sleep apnea (adult) (pediatric), J98.6 - Disorders of diaphragm Ferritin 06/19/23 E66.9 - Obesity, unspecified, E78.00 - Pure hypercholesterolemia, unspecified, G47.33 - Obstructive sleep apnea (adult) (pediatric), J98.6 - Disorders of diaphragm Medications: New polyethylene glycol 3350 (Miralax) Take 7 packets 2 days before surgery and 7 packets 1 day before surgery. Mix each packet with 8 oz's of water before surgery. 14 packets 0RF pantoprazole 40 mg PO QAM 30 days 30 tabs 2RF sucralfate 10 mL PO BID 30 days 600 mL 2RF acetaminophen 500 mg (15 mL) PO Q6H PRN 237 mL 2RF fever or pain pantoprazole 40 mg PO DAILY 90 days 90 tabs 0RF ondansetron HCl 4 mg PO Q6H PRN 20 tabs 0RF nausea and vomiting Coding Level of Care Code Est Pt Level 4 (78844) Diagnoses Obesity (BMI 30-39.9) E66.9 Hypercholesterolemia E78.00 MARY (obstructive sleep apnea) G47.33 Abnormal chest xray R93.89 Class 2 obesity in adult E66.9
[2023-06-20 11:03] VITALS: BP 114/75; PULSE 79; TEMP 36.4; O2SAT 96; BMI 34.8
== END 2023-06-20 11:52 | disposition home or self-care (01) ==
PROVIDERS: PCP Internal Medicine; Visit Provider Surgery
DX: E66.9 Obesity, unspecified (principal); E78.00 Pure hypercholesterolemia, unspecified; G47.33 Obstructive sleep apnea (adult) (pediatric); R93.89 Abnormal findings on diagnostic imaging of other specified body structures
CPT/HCPCS: 99214

== ENCOUNTER → 2023-06-20 10:50 | Outpatient (BNVA) | payer MEDICAID, SELFPAY | PROVIDERS: PCP Internal Medicine; Visit Provider Surgery | DX: E66.9 Obesity, unspecified (principal); Z68.34 Body mass index [BMI] 34.0-34.9, adult; E78.00 Pure hypercholesterolemia, unspecified; G47.33 Obstructive sleep apnea (adult) (pediatric); R93.89 Abnormal findings on diagnostic imaging of other specified body structures; Z99.89 Dependence on other enabling machines and devices | CPT/HCPCS: 99212 ==

== ENCOUNTER → 2023-07-09 09:10 | Outpatient (BNV) | payer MEDICAID, SELFPAY | PROVIDERS: Admitting Provider Surgery; PCP Internal Medicine; Visit Provider Surgery | DX: E66.9 Obesity, unspecified (principal); Z68.34 Body mass index [BMI] 34.0-34.9, adult | CPT/HCPCS: 43659; 43775; 99024 ==

== ENCOUNTER 2023-07-09 14:06 | Inpatient (IN) | payer MEDICAID, SELFPAY ==
[2023-06-21 10:04] VITALS: BMI 34.8
[2023-07-06 08:26] LABS: MANUAL DIFF FLAG NO
[2023-07-06 08:54] LABS: Basophils Absolute Auto 0.1 X10*3/uL (0.0-0.2); Eosinophils Absolute Auto 0.1 X10*3/uL (0.0-0.4); Eosinophils Percent Auto 1.1 % (0-4); Hematocrit 46.8 % (42.0-52.0); Hemoglobin 15.7 g/dl (14.0-18.0); Imm Gran Abs Auto 0.01 X10*3/uL (0.00-0.03); Imm Gran Pct Auto 0.2 % (0.0-0.4); Lymphocytes Percent Auto 32.3 % (20-40); Mean Corpuscular HGB Conc 33.5 g/dl (31.0-36.0); Mean Corpuscular Hemoglobin 29.8 pg (27.0-33.0); Mean Platelet Volume 10.5 fL (9.4-12.4); Monocytes Absolute Auto 0.4 X10*3/uL (0.1-1.2); Monocytes Percent Auto 5.9 % (2-11); Neutrophils Absolute Auto 3.7 x10*3/uL (2.0-8.3); Neutrophils Percent Auto 59.5 % (45-73); Platelet Count 282 X10*3/uL (160-400); Red Blood Count 5.26 X10*6/uL (4.60-5.80); Red Cell Distribution Width 12.6 % (11.0-16.0); White Blood Count 6.3 X10*3/uL (4.8-10.8)
[2023-07-06 08:59] LABS: Partial Thromboplastin Time 30.6 SEC (26.0-36.4)
[2023-07-06 09:01] LABS: Estimated Average Glucose 103 mg/dL; Hemoglobin A1c % 5.2 % (<6.0)
[2023-07-06 09:27] LABS: Alanine Aminotransferase 24 U/L (0-40); Albumin Level 4.5 g/dL (3.5-5.0); Alkaline Phosphatase 79 U/L (39-117); Anion Gap 17 (12-20); Aspartate Amino Transferase 20 U/L (5-37); Bilirubin Total 0.7 mg/dL (0.0-1.0); Blood Urea Nitrogen 16 mg/dL (9-16); C Reactive Protein 0.12 mg/dL (< or = 0.50); Calcium 10.1 mg/dL (8.4-10.2); Carbon Dioxide 28 mmol/L (22-29); Chloride 104 mmol/L (96-108); Cholesterol 240 mg/dL (<200); Creatinine Clr Calc Pharmacy 106.4; Estimated Glomerular Filt Rate > 60; Glucose Random 93 mg/dL (60-115); HDL Cholesterol 55 mg/dL (>40); Iron 100 mcg/dL (45-160); LDL Cholesterol Calculated 168 mg/dL (<100); Percent Iron Saturation 31 % (15-50); Potassium 4.5 mmol/L (3.3-5.1); Sodium 144 mmol/L (135-145); Total Iron Binding Capacity 321 mcg/dL (228-428); Total Protein 7.3 g/dL (6.5-8.0); Triglycerides 88 mg/dL (<150); Unsaturated Iron Binding 221 ug/dL
[2023-07-06 09:45] LABS: Ferritin 212 ng/mL (20-250); TSH reflex Free T4 2.08 uIU/mL (0.32-4.0); Vitamin D 25-OH Total 60.8 ng/mL (>30)
[2023-07-06 09:48] LABS: Vitamin B12 828 pg/mL (200-900)
--- NOTE | 2023-07-08 10:30 | P.CONAN_ITS ---
Documented by User: Antonia Osman NP 07/08/23 10:31 HPI - Anesthesia Eval Consult details Narrative: 52yo M for Gastrectomy Sleeve,EGD,poss diaphragmatic hernia,poss ventral hernia,poss open, PMFSH Active Problems Active Problems: All Active Problems (Updated 06/21/23 @ 10:47 by Gabby Qiu RN) Diaphragm dysfunction (Acute) Class 2 obesity in adult (Acute) Abnormal chest xray (Acute) MARY (obstructive sleep apnea) (Acute) Hypercholesterolemia (Acute) Obesity (BMI 30-39.9) (Acute) Past Medical History Medical History ADHD (attention deficit hyperactivity disorder) Depression Elevated cholesterol Sleep apnea Family History Family History Mother No problems noted. Father No problems noted. Brother No problems noted. Daughter ADHD Daughter No problems noted. Son ADHD Surgical History Surgical History Hx of sinus surgery Hx of wisdom tooth extraction Social History Social History Are you a primary clinical care manager to a significant other at home: No Do you presently have visiting nurse or other home services: No Alcohol intake: current Alcohol intake frequency: a few times a week Patient Tobacco Use Status: Never used Tobacco Use of substances other than those prescribed or required for medical reasons: No Have you been hit, kicked, punched, or otherwise hurt by someone within the past year? If so, by whom?: No Are you DNR?: No Advance Directives Information Provided: Yes (brochure mailed) Advance Directives on File: No Recently lost weight without trying: No Eating poorly because of decreased appetite: No Nutrition Risks: No Nutritional Risk Poor oral hygiene: No Meds Allergies Allergy/AdvReac Type Severity Reaction Status Date / Time No Known Allergies Allergy Verified 07/09/23 07:32 [No Known Allergies*] Exam Exam Date and Time: July 08, 2023 1030 Height,Weight and Vital Signs: Height 5 ft 9 in Weight 107.048 kg Pertinent Lab Results Pertinent Lab Results: Laboratory Tests 07/06/23 07/06/23 08:15 08:24 WBC 6.3 RBC 5.26 Hgb 15.7 Hct 46.8 MCV 89.0 MCH 29.8 MCHC 33.5 RDW 12.6 Plt Count 282 MPV 10.5 Immature Gran % (Auto) 0.2 Neut % (Auto) 59.5 Lymph % (Auto) 32.3 Hidalgo % (Auto) 5.9 Eos % (Auto) 1.1 Baso % (Auto) 1.0 Lymph # (Auto) 2.0 Hidalgo # (Auto) 0.4 Eos # (Auto) 0.1 Baso # (Auto) 0.1 Abs Immat Gran (auto) 0.01 Absolute Neuts (auto) 3.7 Absolute Nucleated RBC 0.000 Nucleated RBC % (auto) 0.0 PT 12.0 INR 1.0 APTT 30.6 Sodium 144 Potassium 4.5 Chloride 104 Carbon Dioxide 28 Anion Gap 17 BUN 16 Creatinine 0.99 Estim Creat Clear Calc 106.4 Estimated GFR > 60 Random Glucose 93 Estimat Average Glucose 103 Hemoglobin A1c % 5.2 Calcium 10.1 Iron 100 TIBC 321 % Saturation 31 Unsat Iron Binding 221 Ferritin 212 Total Bilirubin 0.7 AST 20 ALT 24 Alkaline Phosphatase 79 C-Reactive Protein 0.12 Total Protein 7.3 Albumin 4.5 Triglycerides 88 Cholesterol 240 H LDL Cholesterol, Calc 168 H HDL Cholesterol 55 Vitamin B12 828 25-OH Vitamin D Total 60.8 TSH 2.08 Blood Type A Negative Antibody Screen NEGATIVE Narrative Narrative: EKG 01/2023 Vent. Rate : 073 BPM Atrial Rate : 073 BPM P-R Int : 146 ms QRS Dur : 084 ms QT Int : 368 ms P-R-T Axes : 010 035 032 degrees QTc Int : 405 ms Normal sinus rhythm Normal ECG No previous ECGs available Assessment and Plan Assessment Anesthesia Assessment: Chart Reviewed Documented by User: Estrella Krishna MD 07/09/23 09:55 PMFSH Past Medical History Medical History ADHD (attention deficit hyperactivity disorder) Depression Elevated cholesterol Sleep apnea Family History Family History Mother No problems noted. Father No problems noted. Brother No problems noted. Daughter ADHD Daughter No problems noted. Son ADHD Family history of problems with anesthesia: No Surgical History Surgical History Hx of sinus surgery Hx of wisdom tooth extraction History of Problems with Anesthesia: No Social History Social History Are you a primary clinical care manager to a significant other at home: No Do you presently have visiting nurse or other home services: No Alcohol intake: current Alcohol intake frequency: a few times a week Patient Tobacco Use Status: Never used Tobacco Use of substances other than those prescribed or required for medical reasons: No Have you been hit, kicked, punched, or otherwise hurt by someone within the past year? If so, by whom?: No Are you DNR?: No Advance Directives Information Provided: Yes (brochure mailed) Advance Directives on File: No Recently lost weight without trying: No Eating poorly because of decreased appetite: No Nutrition Risks: No Nutritional Risk Poor oral hygiene: No Meds Allergies Allergy/AdvReac Type Severity Reaction Status Date / Time No Known Allergies Allergy Verified 07/09/23 07:32 [No Known Allergies*] Exam Airway Mallampati Class: II TM Dist: >3cm Neck ROM: Full Heart: rrr Lungs: cta Assessment and Plan Assessment Anesthesia Assessment: Anesthesia Plan Discussed Final Anesthetic Review Family History of Problems with Anesthesia: No History of Problems with Anesthesia: No NPO: Yes ASA Class: III Final Preanesthetic Review: No Changes in Pt Med Stat, Meds/Allgs Chart Reviewed, Consent Obtained/Reviewed and Anes Risks/Benef Reviewed Patient Risk: Intermediate Procedure Risk: Intermediate Anesthetic Plan Anesthetic Plan: GA Disposition: Standard PACU
[2023-07-08 11:04] LABS: Calcium (PTHI) 10.2 mg/dL (8.6-10.3); PTHI 66 pg/mL (16-77)
--- OUTSIDE RECORDS SUMMARY | 2023-07-08 13:20 | XMS_ITS | Continuity of Care Document ---
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 Name Role Phone Shant Ryder DO Primary Care Physician [phone] Encounter [facility] [place] Date(s): 05/23/22 - 11/21/[address] [id number] Attending Physician: Antonia Talley MD Allergies, Adverse Reactions, Alerts Substance Reaction Severity Status Other Food Allergy 1 Persistent Mild Acti ve 1pt allergic to raw vegatables Immunizations Given and Recorded Vaccine Date Status Refusal Reason tetanus/diphtheria/pertussis, acel(Tdap) 1 10/26/10 Given 1Admin Note: Vim given Medications BuPROpion By Mouth, 0 Refills, Maintenance, 06/13/22 8:27:00 EDT, Partial fill upon patient request if the prescription is for a schedule II opioid drug. Start Date: 06/13/22 Status: Ordered Escitalopram By Mouth, Daily, 0 Refills, Maintenance, 06/12/19 14:13:43 EDT Start Date: 06/12/19 Status: Ordered Testosterone 0 Refills, Maintenance, 06/12/19 14:14:01 EDT Start Date: 06/12/19 Status: Ordered Problem List Condition Confirmation Course Effective Dates Status Health [facility] Informant Low testosterone Confirmed Active Depression Confirmed Active MARY on CPAP Confirmed Active Social History Social History Type Response Smoking Status Never smoker entered on: 02/04/14 Sex Patient Care team information Care Team Personnel Name: Shant Ryder DO Position: Reference Physician Member Role: PCP Address: Address: [address] [place] [address] [place] [address]- Care Team Related Persons Name: NIGHAT ROSEN Address: home [address] [place] [address] Name: PATRICIA ROSEN Address: home [address] [place] [address]
[2023-07-09] VITALS (12 sets, daily range): BP systolic 102–145; BP diastolic 64–87; PULSE 71–82; RESP 10–18; TEMP 36.1–36.8; O2SAT 91–98
--- NOTE | 2023-07-09 06:57 | PHA.MEDREC ---
Pharmacy Consult ? Medication Reconciliation Pharmacy has completed the medication reconciliation. COMPLETED BY RN REVIEWED BY PHARMACY BRENDEN
--- NOTE | 2023-07-09 07:15 | P.OP_ITS ---
Operative Note Operative Note Date of Service: 07/09/23 Narrative: Preop diagnosis: [Morbid obesity, Class 2 with significant comorbidities of hypercholesterolemia, obstructive sleep apnea] Postop diagnosis: [same] Procedure: [Laparoscopic sleeve gastrectomy, gastropexy, EGD and intraoperative upper endoscopy] Surgeon: Eric Snow MD Assist: [Lolita Schumacher PA-C] Anesthesia: [GET, Marcaine, 0.25% with epi] Estimated blood loss: [10cc] Specimen: [Portion of stomach with fundus] Intraoperative findings: [NAFLD, no evidence of hiatal hernia or gross gastric pathology. Patient acknowledge to eating pasta last night and on preoperative EGD was noted to have no retained food in the stomach and grossly normal mucosa with no evidence of a hiatal hernia.] Indications: [The patient is a 52-year-old gentleman with a lifelong struggle with obesity who reports a heaviest weight of 270 lb earlier this year. He entered the surgical weight loss program 01/14/2023 at a weight of 258 lb/BMI of 38.0 with a comorbidity of obstructive sleep apnea and hypercholesterolemia. He is congratulated on his interval weight loss and presents today with a weight of 236.0 lb/BMI 34.9 representing a 22 lb weight loss since entering the program. During his workup, he was noted to have a chronically elevated right hemidiaphragm with a negative workup. Options including ongoing medical weight loss, 2nd opinion or sleeve gastrectomy were discussed and apparently understood. The patient wanted to proceed with a laparoscopic sleeve gastrectomy, possible hiatal hernia repair, intraoperative endoscopy and possible ventral hernia repair. I reviewed the inherent risks of this procedure which include, but are not limited to: Bleeding that could require another operation or blood transfusion; the inherent risks of transfusion reaction infectious disease from blood transfusions; the risk of staple line leaks that could cause sepsis, multi-system organ failure and ; the risk of mesenteric or deep vein thrombosis of the lower extremities that could cause a fatal pulmonary embolism was reviewed; the risk of GERD that could require conversion to gastric bypass was discussed; the risk of recurrent hiatal hernia, especially in the setting of weight regain was reviewed. The risk of weight regain if maladaptive eating and sedentary behavior continue was discussed. The importance of proper diet and increased activity to augment surgical weight loss and the fact that no operation would result in weight loss of poor dietary decisions and sedentary behavior are resumed were discussed at length and apparently understood.] Procedure: [The patient was identified in the preoperative holding area by myself and again in the operating suite 6 by myself and the OR team. Patient was placed in left lateral decubitus position and an appropriate time-out performed. The patient had acknowledged eating pasta last night at 8:00pm o'clock and I recommended a preoperative EGD to assess for retained food in the stomach. A bite block was placed and the patient received MAC by the anesthesiologist. The Olympus 160 gastroscope was inserted per os through the bite block and into the hypopharynx without difficulty. The scope was then advanced through the cricopharyngeal portion of the esophagus under direct vision without difficulty. Scope was advanced into the stomach and the anterior, posterior, lesser curve, antrum and fundus all examined with no evidence of retained food, ulcer or gross pathology. And a hiatal hernia was not appreciated. The scope was then advanced to the duodenum and no gross pathology noted. The scope was then used to deflate the stomach and withdrawn. The patient tolerated this portion of the procedure well, was intubated and then reposition supine on the operating table. Safety straps were utilized and a footboard utilized. The patient was induced in general endotracheal anesthesia administered with excellent effect. An appropriate time-out was performed. The patient's abdomen was then widely prepped and draped in the usual manner for surgery using chlorprep. Antibiotics per protocol were administered by Anesthesia. After infiltrating preemptive local in the skin and subcutaneous tissues in the left upper quadrant, a stab incision was made sharply in the left subcostal abdomen and the Veress needle inserted without incident. An appropriate drop test was performed then a pneumoperitoneum of 15 mmHg was obtained using carbon dioxide. Opening pressures were 6 mmHg. Next, a 5 mm 0 degree scope over a 5 mm Optiview trocar was used to access the abdomen via the epigastric incision in the midline. Once the abdomen was entered, the the trocar obturator was removed and the laparoscope was used to confirm there was no injury from the Veress needle nor trocar insertion injury to the bowel or mesentery, then the scope was switched to a 5 mm 45 degree laparoscope. Next, using preemptive local, additional 5 mm trocars were placed under direct laparoscopic vision on the patient's left abdomen, then right and the 5 mm midline trocar upsized to a 12 mm to accommodate the stapler. The patient was then positioned in reverse Trendelenburg and the liver retractor deployed through the right lateral 5 mm trocar and secured. A 40 Danish ViSiGi bougie was inserted by Anesthesia per os and advanced to the stomach to decompress. It was then withdrawn to the GE junction all under direct laparoscopic vision. Dissection was begun along the greater curvature using the 5 mm [place] LigaSure for hemostasis and continued to the left jose of the diaphragm. Dissection was then carried towards the pylorus to 3-4 cm from the pylorus and retro gastric adhesions lysed. The gastroesophageal fat pad was carefully mobilized taking care to avoid injury to the esophagus and stomach and dissection carried towards the short gastrics taking care to avoid injury to the spleen and splenic artery. The diaphragmatic hiatus was carefully examined for a hernia, and no apparent hernia was appreciated. Next, the 40 Fr ViSiGi bougie was advanced by anesthesia under direct vision and laparoscopic guidance and positioned in the antrum approximately 3 cm from the pylorus using laparoscopic graspers to serve as a guide for a stapled sleeve gastrectomy. Stapling was performed with Zkatter power stapler Endo-ZURDO stapler with a purple 45 and 60 loads as needed to keep the sleeve morphology uniform. The bougie served as a guide to maintain the same sleeve caliber to avoid stricture & sleeve distortion. The 10 mm clip surgical garment assembler was used to apply additional clips to the staple line. Care was taken to be sure that the sleeve laid flat and was without stricture. Once the sleeve was complete, the portion of stomach was placed in the lower abdomen to be sent for removal and permanent section. The staple line, gastrocolic omentum, spleen and short gastric areas were all inspected for hemostasis which was found to be good. The ViSiGi bougie used for a leak test by reducing the reverse Trendelenburg and instilling sterile saline. Next, the bougie was withdrawn under laparoscopic vision used to suction the esophagus and hypopharynx and then discarded. After inspecting again for hemostasis, a gastropexy was performed using 2-0 Polysorb suture to secure the sleeve gastrectomy to the gastrocolic omentum with intracorporeal suturing technique. Next, I broke scrub perform an on-table upper endoscopy to assess the sleeve and the esophagus and stomach. The patient was returned to neutral position and the Olympus 160 gastroscope was advanced per os taking care to preserve the endotracheal tube. The esophagus was intubated without incident. Air was insufflated via the scope and Ms. Schumacher instilled irrigant at my direction as an intraoperative leak test. The endoscope advanced into the newly formed sleeve. The staple line was inspected for hemostasis and the morphology of the sleeve appeared straight with a uniform diameter. Intraoperatively, there was no evidence of staple line leak seen during laparoscopy as air was insufflated via endoscope. The scope was then used to aspirate the air from the sleeve withdrawn and removed. I then rescrubbed to return to the operative field and again inspected the field for hemostasis. After final assessment for hemostasis, the patient was returned to neutral position, a Fareed used to withdraw the resected gastric specimen which was sent for permanent section. The fascia of the 12 mm midline was closed using an 0 Polysorb figure of 8 on a suture passer under direct laparoscopic vision. The abdomen was then deflated and all trocars removed. The suture was then tied and the skin closed with 4-0 Monocryl subcuticular sutures. The abdomen was then washed and dried, benzoin and Steri-Strips applied followed by Tegaderms. The patient tolerated the procedure well was then extubated the recover in stable condition. All sponge needle and instrument counts were correct x2. At the patient's request, I contacted his , Olinda at [phone] to apprise her of the operation and postoperative plan. Her questions seemed to be satisfactorily answered.]
--- NOTE | 2023-07-09 07:15 | MHC.SHP ---
Pre-Procedural Eval Section A Date of Service: 07/09/23 The patient is an INPATIENT: Yes The History & Physical has been completed within 30 days and I have reviewed it.: Yes Section B Chief Complaint: Sleeve Gastrectomy Allergies: Allergies Allergy/AdvReac Type Severity Reaction Status Date / Time No Known Allergies Allergy Verified 06/20/23 10:57 [No Known Allergies*] Plan I have reviewed the history and physical and performed a pertinent physical examination on my patient. No changes have occurred unless specified. Time Spent With Patient Time: Total time managing care of this patient today ____ minutes.
[2023-07-09] MEDS: Lactated Ringers 1,000 ML 100 ML IVCONT ×3 (08:42→23:45)
[2023-07-09] MEDS: Aprepitant 32 MG/4.4 ML VIAL IVPUSH (08:42)
--- NOTE | 2023-07-09 10:19 | PC.NURSE ---
Patient ate pasta at 8pm last night, . Dr. Snow at bedside and made aware. Per him, plan to do EGD first to assess stomach content. OR team made aware.
--- NOTE | 2023-07-09 13:21 | P.DS_ITS ---
DS: Providers Provider Date of Service: 07/10/23 Primary care physician: Shant Ryder MD DS: Summary Hospital Course Hospital Course: ADMITTING DIAGNOSIS: morbid obesity, MARY and HLD DISCHARGE DIAGNOSIS: same, s/p laparoscopic sleeve gastrectomy PAST SURGICAL HISTORY: wisdom teeth PROCEDURE: upper endoscopy, laparoscopic sleeve gastrectomy DISCHARGE SUMMARY: History of Present Illness: The patient is a 52 year-old man with a BMI of 38 kg/m2 and associated co- morbidities as described above. The patient had extensive work-up, lost 18 lbs preoperatively and was electively scheduled for laparoscopic, possible open sleeve gastrectomy and gastropexy. Risks and complications of the surgery were discussed with the patient in advance, particularly the possibility of , pulmonary embolism, anastomotic leak, bleeding, bowel injury, GERD, cardiac, renal or pulmonary complications. The patient understood all the risks and was in agreement with the surgical plan. Hospital Course: The patient underwent an uneventful laparoscopic sleeve gastrectomy with gastropexy and repair of diaphragmatic hernia on the day of admission. Postoperatively, the patient was transferred to the surgical floor. The patient received IV Acetaminophen and IV dilaudid for pain control. Patient was started on bariatric phase 1 diet POD #0. On postoperative day one, the patient was feeling well without nausea, vomiting, fevers, or tachycardia. The patient had some mild incisional pain and the abdomen was soft. On the morning of postoperative day one, the patient was continued on 1 ounce of water or ice every half hour. During the day, the patient did fairly well, having some incisional pain, but able to ambulate adequately and to tolerate liquids well. Since the patient is doing well, we decided that the patient was ready to be discharged. The patient was given instructions to follow-up with me next week and to call my office for any fever over 101, persistent abdominal pain, nausea, vomiting, GERD, symptoms of DVT such as calf tenderness, or leg swelling, or pulmonary embolism such as chest pain or shortness of breath. The patient was also instructed to drink 40-60 ounces of liquids per day using the 1-ounce cups. The patient had been given prescriptions for Tylenol for pain, Zofran prn for nausea, and pantoprazole and carafate previously. The patient was encouraged to ambulate and use the incentive spirometer. The patient was allowed to shower, but no baths, and encouraged to stay active at home. All of these instructions were given to the patient personally. All questions were answered and the patient understood all instructions, the instructions were also given to the patient in print. Time Spent with Patient Time attestation: Total time managing care of this patient today ____ minutes. Discharge coordination time: Less than 30 minutes Quality: Safe Use of Opioids Does Pt have an Active Cancer Diagnosis on the Problem List?: No Quality: Stroke Does the patient have a stroke diagnosis?: No Physical Exam Vital Signs: Vital Signs: Last Vital Signs Temp 98.3 F 07/09/23 07:42 Pulse 79 07/09/23 07:42 Resp 16 07/09/23 07:42 BP 102/73 07/09/23 07:42 Pulse Ox 96 07/09/23 07:42 O2 Del Method Room Air 07/09/23 07:42 BMI result Body Mass Index 34.8 DS: Data Data Completed and Pending Pending studies at discharge: Pending at discharge 07/09/23 12:44 Surgical [PTH] Routine Discharge Plan Discharge Anticipated Discharge Date/Time: 07/10/23 08:35 Patient Disposition: Home, Self-Care Discharge Diagnosis: s/p sleeve gastrectomy Referrals: Shant Ryder MD [Primary Care Provider] - 1 Week Discharge Medications: Continued ondansetron HCl 4 mg tablet 4 mg PO Q6H PRN (Reason: nausea and vomiting) Qty: 20 0RF sucralfate 100 mg/mL suspension 10 ml PO BID 30 Days Qty: 600 2RF acetaminophen 500 mg/15 mL liquid 500 mg PO Q6H PRN (Reason: fever or pain) Qty: 237 2RF pantoprazole 40 mg tablet,delayed release (DR/EC) 40 mg PO DAILY 90 Days Qty: 90 0RF Discontinued thiamine HCl (vitamin B1) 100 mg tablet 100 mg PO DAILY 90 Days Qty: 90 1RF cholecalciferol (vitamin D3) 125 mcg (5,000 unit) capsule 125 mcg PO DAILY Qty: 90 0RF Discharge Orders: Discharge Order (Routine); Ordered 07/10/23 Ordered By: Lolita Schumacher Activity on Discharge: No heavy lifting Stand Alone Forms: Patient Portal Discharge page Care Plan Goals: weight loss Health Concerns: obesity Plan of Treatment: 1. Please call your doctor or come back to the emergency room should any new symptoms arise. 2. Activity: You may shower. No tub baths, sex or returning to work until discussed at first post op appointment. No exercise, alcohol, tobacco or illegal drug use. 3. Diet: continue as discussed with bariatric team.. 4. Dressing Change/Wound Care: Do not change or remove surgical dressings unless they are wet or soiled. 5. Call your doctor if: - Your temperature exceeds 101.5 F - You experience excessive pain or swelling - You have an unexpected reaction to medication - You have excessive bleeding - You experience continued vomiting/nausea - Your incision begins to separate - Your incision shows signs of infection such as increased redness, swelling, excessive pain, heat, or drainage (light blood or clear fluid is normal) 6. Continue to use incentive spirometer hourly while awake. Walk in home for 5- 10 minutes every 2 hours during the first week. The patient's medical history has been reviewed and they are considered low risk for post op DVT and therefore DVT prophylaxis is not considered necessary. Travel after surgery was reviewed. The patient has not disclosed any travel plans during the first 30 days after surgery and they have been advised that within the first 30 days after surgery any bus, plane, train or car travel over 2 hours in duration is contraindicated due to the possibility of developing blood clots from immobility. Any travel, needs to include periods of ambulation of 10 minutes in duration every 2 hours. The patient was instructed to discuss any plans for travel during this period with their bariatric surgeon. 7. General instructions: No lifting greater than 5 lbs for 1 week and not more than 20lbs the next 3?weeks. No driving until seen at the office in 5-7 days after surgery. Please walk around your home every hour or two to prevent blood clots from forming in your legs. Please follow the post op diet instructions you are?given by the bariatric team.?If you have any issues or concerns or questions please call the office/answering service to speak with the bariatric provider control tower radio operator.? The Celebrate shakes have all of the bariatric vitamins that you need. If you are drinking other protein shakes, you will need to purchase the Celebrate multivitamins and calcium that are available in the hospital gift shop.??Do not take any new medications without first discussing this with the bariatric team. Please make sure you are consuming at least 40 ounces of fluids per day starting the?day AFTER your discharge from the hospital. Each one ounce cup represents 6 sips. If you drink faster you may experience?bloating,?gas pain, burping, nausea or heartburn. Do not hesitate to contact the office with any questions at . Assessment: stable, post op sleeve gastrectomy
[2023-07-09 14:00] LABS: Hematocrit 43.8 % (42.0-52.0); Hemoglobin 14.6 g/dl (14.0-18.0)
[2023-07-09 14:10] LABS: Anion Gap 15 (12-20); Blood Urea Nitrogen 18 mg/dL (9-16); Calcium 9.3 mg/dL (8.4-10.2); Carbon Dioxide 23 mmol/L (22-29); Chloride 107 mmol/L (96-108); Creatinine Clr Calc Pharmacy 100.3; Estimated Glomerular Filt Rate > 60; Glucose Random 139 mg/dL (60-115); Potassium 4.8 mmol/L (3.3-5.1); Sodium 140 mmol/L (135-145)
[2023-07-09] MEDS: Famotidine/PF 20 MG/2 ML VIAL IVPUSH ×2 (15:03→20:24)
[2023-07-09] MEDS: 0.9 % Sodium Chloride Flush 3 ML SYRINGE IVFLUSH ×2 (15:04→20:24)
--- NOTE | 2023-07-09 15:52 | P.PNGS_ITS ---
Subjective Subjective Date of Service: 07/09/23 Patient reports: no new complaints and tolerating liquids well Interval history: Patient denies nausea or vomiting and reports good analgesia. He is started sips of water and will be working on getting out of bed shortly. He denies any chest pain, difficulty breathing or shortness of breath. Physical Exam 2 Vital Signs: Vital Signs: Last Vital Signs Temp 97.0 F 07/09/23 15:03 Pulse 76 07/09/23 15:03 Resp 15 07/09/23 15:03 BP 134/77 07/09/23 15:03 Pulse Ox 96 07/09/23 15:03 O2 Del Method Nasal Cannula 07/09/23 15:03 O2 Flow Rate 2 07/09/23 14:30 BMI result Body Mass Index 34.8 On exam the patient is anicteric He is having no respiratory distress Abdominal binder is in place with appropriate incisional tenderness Objective Data Active Medications Famotidine (Famotidine/Pf 20 Mg/2 Ml Vial) 20 mg IVPUSH BID [facility] Last Admin: 07/09/23 15:03 Dose: 20 mg Documented By: DEON Fentanyl (Fentanyl Citrate/Pf 100 Mcg/2 Ml Vial) 25 mcg IVPUSH Q5M PRN; Protocol PRN Reason: Pain, Moderate(Pain Scale 4-6) Hydromorphone HCl (Hydromorphone Hcl 0.5 Mg/0.5 Ml Syringe) 0.25 mg IVPUSH Q4H PRN; Protocol PRN Reason: Pain, Moderate(Pain Scale 4-6) Lactated Ringer's (Lr) 1,000 mls @ 100 mls/hr IVCONT .Q10H [facility] Last Admin: 07/09/23 15:04 Dose: 100 mls/hr Documented By: DEON Cefazolin Sodium/Dextrose (Ancef) 2 gm in 50 mls @ 100 mls/hr IV POSTOP ONE Stop: 07/09/23 17:14 Acetaminophen (Ofirmev) 1,000 mg in 100 mls @ 16.7 mls/hr IV .Q6H [facility] Metoclopramide HCl (Metoclopramide Hcl 10 Mg/2 Ml Vial) 10 mg IVPUSH Q6H PRN PRN Reason: Nausea Ondansetron HCl (Ondansetron Hcl 4 Mg/2 Ml Vial) 4 mg IVPUSH ONCE PRN PRN Reason: Nausea and Vomiting Ondansetron HCl (Ondansetron Hcl 4 Mg/2 Ml Vial) 4 mg IVPUSH Q8H PRN PRN Reason: Nausea Sodium Chloride (0.9 % Sodium Chloride Flush 3 Ml Syringe) 3 ml IVFLUSH QSHIFT [facility] Last Admin: 07/09/23 15:04 Dose: 3 ml Documented By: DEON Labs 07/09/23 13:51 07/09/23 13:51 Labs: Laboratory Results - last 24 hr 07/09/23 13:51 Anion Gap 15 Estim Creat Clear Calc 100.3 Estimated GFR > 60 Random Glucose 139 H Calcium 9.3 D Procedures Date of Service Date of Service: 07/09/23 Progress Note: A&P Assessment and plan (1) S/P laparoscopic sleeve gastrectomy: Status: Acute (2) Diaphragm dysfunction: Status: Acute (3) Class 2 obesity in adult: Status: Acute (4) MARY (obstructive sleep apnea): Status: Acute (5) Hypercholesterolemia: Status: Acute (6) Obesity (BMI 30-39.9): Status: Acute Plan See orders; OOB/ambulate shortly Olinda, was called and updated Trend labs and exam. Importance of hydration reviewed. Time Spent With Patient Time: Total time managing care of this patient today ____ minutes. Quality Stroke Does the patient have a stroke diagnosis?: No VTE Prior VTE?: No VTE Risk Level:: Surgical - moderate VTE Device Contraindication: N/A - Device Ordered VTE Drug Contraindication: Treatment Not Indicated
[2023-07-09] MEDS: ceFAZolin Sodium/Dextrose,Iso 2 GM/50 ML PIGGYBACK IV (16:04)
[2023-07-09] MEDS: Acetaminophen 1,000 MG/100 ML PIGGYBACK 16.7 MG IV ×2 (17:07→21:27)
[2023-07-09] MEDS: ondansetron HCL 4 MG/2 ML VIAL IVPUSH (21:26)
[2023-07-09 22:44] LABS: Zinc 89 mcg/dL (60-130)
[2023-07-10] MEDS: Acetaminophen 1,000 MG/100 ML PIGGYBACK 16.7 MG IV (03:22)
[2023-07-10 03:33] VITALS: BP 118/70; PULSE 76; RESP 18; TEMP 36.6; O2SAT 94
[2023-07-10 06:10] LABS: MANUAL DIFF FLAG NO
[2023-07-10 06:17] LABS: Basophils Percent Auto 0.2 % (0-2); Eosinophils Percent Auto 0.1 % (0-4); Hematocrit 39.4 % (42.0-52.0); Hemoglobin 13.3 g/dl (14.0-18.0); Imm Gran Abs Auto 0.04 X10*3/uL (0.00-0.03); Imm Gran Pct Auto 0.4 % (0.0-0.4); Lymphocytes Absolute Auto 1.2 X10*3/uL (1.2-4.9); Lymphocytes Percent Auto 10.2 % (20-40); Mean Corpuscular HGB Conc 33.8 g/dl (31.0-36.0); Mean Corpuscular Hemoglobin 30.2 pg (27.0-33.0); Mean Corpuscular Volume 89.3 fL (80.0-98.0); Mean Platelet Volume 10.9 fL (9.4-12.4); Monocytes Absolute Auto 0.8 X10*3/uL (0.1-1.2); Monocytes Percent Auto 6.6 % (2-11); Neutrophils Absolute Auto 9.4 x10*3/uL (2.0-8.3); Neutrophils Percent Auto 82.5 % (45-73); Platelet Count 253 X10*3/uL (160-400); Red Blood Count 4.41 X10*6/uL (4.60-5.80); Red Cell Distribution Width 12.6 % (11.0-16.0); White Blood Count 11.4 X10*3/uL (4.8-10.8)
[2023-07-10 06:29] LABS: Anion Gap 12 (12-20); Blood Urea Nitrogen 12 mg/dL (9-16); Carbon Dioxide 24 mmol/L (22-29); Chloride 108 mmol/L (96-108); Creatinine Clr Calc Pharmacy 121.1; Estimated Glomerular Filt Rate > 60; Glucose Random 113 mg/dL (60-115); Potassium 4.3 mmol/L (3.3-5.1); Sodium 140 mmol/L (135-145)
--- NOTE | 2023-07-10 06:49 | P.PNGS_ITS ---
Subjective Subjective Date of Service: 07/10/23 Patient reports: no new complaints, feels better, still having pain and tolerating liquids well Interval history: The patient denies any severe pain, he denies GERD, regurgitation, notes that his nausea resolved last night. No vomiting nor hematemesis. Patient denies chest pain, difficulty breathing or shortness of breath. He is been out of bed and walked but notes that he needs to do better with hydration. He otherwise denies new symptoms or concerns. Physical Exam 2 Vital Signs: Vital Signs: Last Vital Signs Temp 98 F 07/10/23 03:33 Pulse 76 07/10/23 03:33 Resp 18 07/10/23 03:33 BP 118/70 07/10/23 03:33 Pulse Ox 94 07/10/23 03:33 O2 Del Method Room Air 07/10/23 03:33 O2 Flow Rate 2 07/09/23 14:30 BMI result Body Mass Index 34.8 On exam he is nontoxic and in good spirits Sclera are anicteric He is in no acute respiratory distress Abdominal binder is in place with expected abdominal tenderness Objective Data Active Medications Famotidine (Famotidine/Pf 20 Mg/2 Ml Vial) 20 mg IVPUSH BID [facility] Last Admin: 07/09/23 20:24 Dose: 20 mg Documented By: MONA Fentanyl (Fentanyl Citrate/Pf 100 Mcg/2 Ml Vial) 25 mcg IVPUSH Q5M PRN; Protocol PRN Reason: Pain, Moderate(Pain Scale 4-6) Hydromorphone HCl (Hydromorphone Hcl 0.5 Mg/0.5 Ml Syringe) 0.25 mg IVPUSH Q4H PRN; Protocol PRN Reason: Pain, Moderate(Pain Scale 4-6) Lactated Ringer's (Lr) 1,000 mls @ 100 mls/hr IVCONT .Q10H [facility] Last Admin: 07/09/23 23:45 Dose: 100 mls/hr Documented By: MONA Acetaminophen (Ofirmev) 1,000 mg in 100 mls @ 16.7 mls/hr IV .Q6H [facility] Last Admin: 07/10/23 03:22 Dose: 16.7 mls/hr Documented By: MONA Metoclopramide HCl (Metoclopramide Hcl 10 Mg/2 Ml Vial) 10 mg IVPUSH Q6H PRN PRN Reason: Nausea Ondansetron HCl (Ondansetron Hcl 4 Mg/2 Ml Vial) 4 mg IVPUSH ONCE PRN PRN Reason: Nausea and Vomiting Ondansetron HCl (Ondansetron Hcl 4 Mg/2 Ml Vial) 4 mg IVPUSH Q8H PRN PRN Reason: Nausea Last Admin: 07/09/23 21:26 Dose: 4 mg Documented By: MONA Sodium Chloride (0.9 % Sodium Chloride Flush 3 Ml Syringe) 3 ml IVFLUSH QSHIFT [facility] Last Admin: 07/09/23 20:24 Dose: 3 ml Documented By: MONA Labs 07/10/23 05:51 07/10/23 05:51 Labs: Laboratory Results - last 24 hr 07/06/23 07/09/23 07/10/23 08:24 13:51 05:51 MCV 89.3 MCH 30.2 MCHC 33.8 RDW 12.6 Plt Count 253 MPV 10.9 Immature Gran % (Auto) 0.4 Neut % (Auto) 82.5 H Lymph % (Auto) 10.2 L [place] % (Auto) 6.6 Eos % (Auto) 0.1 Baso % (Auto) 0.2 Lymph # (Auto) 1.2 [place] # (Auto) 0.8 Eos # (Auto) 0.0 Baso # (Auto) 0.0 Abs Immat Gran (auto) 0.04 H Absolute Neuts (auto) 9.4 H Absolute Nucleated RBC 0.000 Nucleated RBC % (auto) 0.0 Anion Gap 15 12 Estim Creat Clear Calc 100.3 121.1 Estimated GFR > 60 > 60 Random Glucose 139 H 113 Calcium 9.3 D 9.0 Zinc 89 Procedures Date of Service Date of Service: 07/10/23 Progress Note: A&P Assessment and plan (1) S/P laparoscopic sleeve gastrectomy: Status: Acute (2) Diaphragm dysfunction: Status: Acute (3) Class 2 obesity in adult: Status: Acute (4) MARY (obstructive sleep apnea): Status: Acute (5) Hypercholesterolemia: Status: Acute Plan Advanced to bariatric phase 2 Importance of hydration, ambulation and starting protein shakes/following diet was discussed and apparently understood. Lab work stable; patient will be reassessed by Ms. Schumacher to review postop diet and answer any additional questions. Expect discharge later this morning. Time Spent With Patient Time: Total time managing care of this patient today ____ minutes. Quality Stroke Does the patient have a stroke diagnosis?: No VTE Prior VTE?: No VTE Risk Level:: Surgical - moderate VTE Device Contraindication: N/A - Device Ordered VTE Drug Contraindication: Treatment Not Indicated
[2023-07-10 07:28] VITALS: BP 123/68; PULSE 79; RESP 16; TEMP 36.8; O2SAT 92
[2023-07-10] MEDS: Famotidine/PF 20 MG/2 ML VIAL IVPUSH (08:49)
--- NOTE | 2023-07-10 09:45 | MHC.CM.PN ---
Patient s/p gastric sleeve lives with . He is independent with all functional mobility. A HCP has been documented placed on chart Patient is discharged to home self care family transport.
--- NOTE | 2023-07-10 13:11 | HO.POSTANES ---
Post Anesthesia Evaluation Post Anesthesia Evaluation Date of Service: 07/10/23 Vital Signs: Vital Signs Temp Pulse Resp BP Pulse Ox O2 Del Method 07/10/23 07:28 98.3 F 79 16 123/68 92 07/10/23 03:33 98 F 76 18 118/70 94 Room Air Anesthesia: General Endotracheal-GETA Mental Status: Awake Pain Control: Satisfactory Nausea/Vomiting: None Hydration: Adequate Anesthesia-Related Issues: No Anes. Related Issues
[2023-07-10 15:23] LABS: Vitamin B1 16 nmol/L (8-30)
[2023-07-11 17:13] LABS: Vitamin A 45 mcg/dL (38-98)
== END 2023-07-10 10:12 | disposition home or self-care (01) | DRG 403 ==
LOC: HO.SSSA 14:09 → HO.S3 14:14
PROVIDERS: Physician Assistant; Admitting Provider Surgery; PCP Internal Medicine; Visit Provider Surgery
PROC: 0DB64Z3 Excision of Stomach, Percutaneous Endoscopic Approach, Vertical (ICD-10-PCS; CPT 43845; principal; 2023-07-09 09:10)
DX: E66.01 Morbid (severe) obesity due to excess calories (principal); K76.0 Fatty (change of) liver, not elsewhere classified; E78.00 Pure hypercholesterolemia, unspecified; Z68.34 Body mass index [BMI] 34.0-34.9, adult; G47.33 Obstructive sleep apnea (adult) (pediatric); Z79.899 Other long term (current) drug therapy
CPT/HCPCS: 36415; 80048; 80053; 80061; 82306; 82607; 82728; 83036; 83540; 83970; 84425; 84443; 84590; 84630; 85014; 85018; 85025; 85610; 85730; 86140; 86850; 86900; 86901; 88305; 88307; 88342; C9145; J0131; J0690; J1100; J1170; J2250; J2405; J3010

== ENCOUNTER 2023-07-17 12:49 | Outpatient (AMB) | payer MEDICAID, SELFPAY ==
--- NOTE | 2023-07-17 12:52 | A.OFFVIS_ITS ---
Intake VS Expanded 07/17/23 13:05 BP 113/73 Blood Pressure Location Rt brachial Blood Pressure Position Sitting Pulse 82 Pulse Source Pulse Oximeter Temp 97.3 F Temperature Source Tympanic Pulse Oximetry 97 Oxygen Delivery Method Room Air Height 5 ft 9 in Weight 215 lb 9.6 oz BMI 31.8 Body Fat % 28.4 Body Fat Mass 61.0 Fat Free Mass 154.4 Visceral Fat Rating 14.0 Body Water % 50.5 Body Water Mass 108.6 Muscle Mass/Score 146.6 Basal Metabolic Rate/Score 2,064 Intake Visit Reasons: (OV) 7 Days PO LSG 07/10/23 Allergies No Known Allergies [No Known Allergies*] Allergy (Verified 07/17/23 12:55) HPI HPI Comments History of Present Illness Details The patient is a 52-year-old gentleman with a lifelong struggle with obesity who reports a heaviest weight of 270 lb earlier this year. He entered the surgical weight loss program 01/14/2023 at a weight of 258 lb/BMI of 38.0 with a comorbidity of obstructive sleep apnea and hypercholesterolemia. He underwent laparoscopic sleeve gastrectomy on 07/09/23. No hiatal hernia was present. Today he is 215.6lbs/BMI 31.8 representing a 43 lb weight loss since entering the SWL program. Since surgery, he denies GERD, dysphagia, odynophagia, N/V, hematemesis. Meal plan: Celebrate 4:1 shakes: 3 shakes with one scoop. Exercise: walking about 1 mi every other day Hydration: 40-50 oz water Bowel fxn: every 2-3 days, soft PFSH Medical History ADHD (attention deficit hyperactivity disorder) Depression Elevated cholesterol Sleep apnea Surgical History (Updated 07/17/23 @ 12:58 by Juli Arita CMA) Hx of laparoscopic partial gastrectomy Hx of sinus surgery Hx of wisdom tooth extraction Family History Mother No problems noted. Father No problems noted. Brother No problems noted. Daughter ADHD Daughter No problems noted. Son ADHD Social History Household Members: Family Housing: House Are you a primary child care supervisor to a significant other at home: No Do you presently have visiting nurse or other home services: No Alcohol intake: current Alcohol intake frequency: a few times a week Patient Tobacco Use Status: Never used Tobacco Substance Use Type: Marijuana service: No Results Reviewed Results Reviewed: Pathology showed no evidence of H pylori and no evidence of dysplasia/atypia. Assessment & Plan Assessment & Plan (1) S/P laparoscopic sleeve gastrectomy: Code(s): Z98.84 - Bariatric surgery status (2) Diaphragm dysfunction: Code(s): J98.6 - Disorders of diaphragm (3) Class 2 obesity in adult: Code(s): E66.9 - Obesity, unspecified (4) MARY (obstructive sleep apnea): Comment: On CPAP, Dx 2018 at [facility] [place], [place] Code(s): G47.33 - Obstructive sleep apnea (adult) (pediatric) (5) Hypercholesterolemia: Code(s): E78.00 - Pure hypercholesterolemia, unspecified Plan The patient is congratulated on his 43 lb weight loss since entering the surgical weight loss program. The importance of hydration, following the meal plan and increasing his activity were discussed and apparently understood. The importance of avoiding core strengthening/lifting more than 20 lb to minimize risk of incisional hernia was discussed and apparently understood. Meal plan: Celebrate 4:1 shakes: 3 shakes with one scoop; increase 2 shakes to 1.5 scoops for 4 scoops/day Exercise: walking about 1 mi every other day. Trend calorie expenditure, as pre-op. Goal 2,000kcal/week. No lifting more than 20 lb and no core strengthening but the patient is free to use an exercise bicycle, elliptical or treadmill with increasing Hydration: 40-50 oz water continue to work on hydration Bowel fxn: every 2-3 days, soft. Importance of contacting me if he has constipation and firm stool was reviewed. He declined a work note stating he works from home and will see me back in 3 weeks, sooner for problems. He will continue his current medications per postop protocol and will be seen by Melony Cabrera in the next few weeks. Coding Level of Care Code Global (80050) Diagnoses S/P laparoscopic sleeve gastrectomy Z98.84 Diaphragm dysfunction J98.6 Class 2 obesity in adult E66.9 MARY (obstructive sleep apnea) G47.33 Hypercholesterolemia E78.00
[2023-07-17 13:05] VITALS: BP 113/73; PULSE 82; TEMP 36.3; O2SAT 97; BMI 31.8
== END 2023-07-17 13:36 | disposition home or self-care (01) ==
PROVIDERS: PCP Internal Medicine; Visit Provider Surgery
DX: Z98.84 Bariatric surgery status (principal); J98.6 Disorders of diaphragm; E66.9 Obesity, unspecified; G47.33 Obstructive sleep apnea (adult) (pediatric); E78.00 Pure hypercholesterolemia, unspecified
CPT/HCPCS: 99024

== ENCOUNTER → 2023-07-17 12:49 | Outpatient (BNVA) | payer MEDICAID, SELFPAY | PROVIDERS: PCP Internal Medicine; Visit Provider Surgery ==

== ENCOUNTER → 2023-07-31 13:13 | Outpatient (BNVA) | payer MEDICAID, SELFPAY | PROVIDERS: PCP Internal Medicine; Visit Provider Dietitian, Registered | DX: E66.9 Obesity, unspecified (principal); Z68.31 Body mass index [BMI] 31.0-31.9, adult | CPT/HCPCS: 97803 ==

== ENCOUNTER 2023-08-06 14:58 | Outpatient (AMB) | payer MEDICAID, SELFPAY ==
--- NOTE | 2023-08-06 15:09 | MHC.OFFVIS ---
Intake Vital Signs 08/06/23 15:22 Height 5 ft 9 in Weight 209 lb 12.8 oz BMI 31.0 BP 104/68 Blood Pressure Location Rt brachial Position Sitting Pulse 72 Pulse Source Pulse Oximeter Temp 97.1 F Temp Source Tympanic Pulse Oximetry (%) 98 Oxygen Delivery Method Room Air Intake Visit Reasons: (OV) PO LSG 07/10/23 Allergies No Known Allergies [No Known Allergies*] Allergy (Verified 08/06/23 15:20) HPI HPI Comments History of Present Illness Details The patient is a 52-year-old gentleman with a lifelong struggle with obesity who reports a heaviest weight of 270 lb earlier this year. He entered the surgical weight loss program 01/14/2023 at a weight of 258 lb/BMI of 38.0 with a comorbidity of obstructive sleep apnea and hypercholesterolemia. He underwent laparoscopic sleeve gastrectomy on 07/09/23. No hiatal hernia was present. Today he is 209.8 lbs/BMI 31.0 representing a 48 lb weight loss since entering the SWL program. Since surgery, he denies GERD, dysphagia, odynophagia, N/V, hematemesis. Meal plan: Celebrate 4:1 shakes: 3 shakes with one scoop. Exercise: walking about 1 mi every other day Hydration: 40-50 oz water Bowel fxn: every 2-3 days, soft PFSH Medical History (Updated 07/18/23 @ 00:02 by Background Daemon) Diaphragm dysfunction Abnormal chest xray Obesity (BMI 30-39.9) ADHD (attention deficit hyperactivity disorder) Depression Elevated cholesterol Sleep apnea Surgical History Hx of laparoscopic partial gastrectomy Hx of sinus surgery Hx of wisdom tooth extraction Family History Mother No problems noted. Father No problems noted. Brother No problems noted. Daughter ADHD Daughter No problems noted. Son ADHD Household Members: Family Housing: House Are you a primary memory care program resident to a significant other at home: No Do you presently have visiting nurse or other home services: No Alcohol intake: current Alcohol intake frequency: a few times a week Patient Tobacco Use Status: Never used Tobacco Substance Use Type: Marijuana service: No Coding
[2023-08-06 15:22] VITALS: BP 104/68; PULSE 72; TEMP 36.2; O2SAT 98; BMI 31.0
--- NOTE | 2023-08-06 15:24 | A.OFFVIS_ITS ---
Intake VS Expanded 08/06/23 15:22 BP 104/68 Blood Pressure Location Rt brachial Blood Pressure Position Sitting Pulse 72 Pulse Source Pulse Oximeter Temp 97.1 F Temperature Source Tympanic Pulse Oximetry 98 Oxygen Delivery Method Room Air Height 5 ft 9 in Weight 209 lb 12.8 oz BMI 31.0 Body Fat % 26.6 Body Fat Mass 55.8 Fat Free Mass 153.8 Visceral Fat Rating 13.0 Body Water % 52.3 Body Water Mass 109.6 Muscle Mass/Score 146.2 Basal Metabolic Rate/Score 2,049 Intake Visit Reasons: (OV) PO LSG 07/10/23 Allergies No Known Allergies [No Known Allergies*] Allergy (Verified 08/06/23 15:20) HPI HPI Comments History of Present Illness Details The patient is a 52-year-old gentleman with a lifelong struggle with obesity who reports a heaviest weight of 270 lb earlier this year. He entered the surgical weight loss program 01/14/2023 at a weight of 258 lb/BMI of 38.0 with a comorbidity of obstructive sleep apnea and hypercholesterolemia. He underwent laparoscopic sleeve gastrectomy on 07/09/23. No hiatal hernia was present. Today he is 209.8lbs/BMI 31.0 representing a 48 lb weight loss since entering the SW[facility] program. Since surgery, he denies GERD, dysphagia, odynophagia, N/V, hematemesis. Meal plan: Celebrate 4:1 shakes: 3 shakes with one scoop. The patient met with Melony and was advised to increase his protein, but he notes he is not consistently following her recommendations. He also notes having 1-1/2 scallops, beans and sausage when he went out to dinner last week. He noted that he was uncomfortable but he does note dietary monotony is increasing his food Exercise: walking about 1 mi every other day, but he notes diminished interest/effort Hydration: 40-50 oz water Bowel fxn: every 2-3 days, soft PFSH Medical History (Updated 07/18/23 @ 00:02 by Concha Sanchez) Diaphragm dysfunction Abnormal chest xray Obesity (BMI 30-39.9) ADHD (attention deficit hyperactivity disorder) Depression Elevated cholesterol Sleep apnea Surgical History Hx of laparoscopic partial gastrectomy Hx of sinus surgery Hx of wisdom tooth extraction Family History Mother No problems noted. Father No problems noted. Brother No problems noted. Daughter ADHD Daughter No problems noted. Son ADHD Household Members: Family Housing: House Are you a primary intensive care ambulance paramedic to a significant other at home: No Do you presently have visiting nurse or other home services: No Alcohol intake: current Alcohol intake frequency: a few times a week Patient Tobacco Use Status: Never used Tobacco Substance Use Type: Marijuana service: No Review of Systems Const All systems reviewed & are unremarkable except as noted in HPI and below Physical Exam Vital Signs: Last Vital Signs Temp 97.1 F 08/06/23 15:22 Pulse 72 08/06/23 15:22 BP 104/68 08/06/23 15:22 Pulse Ox 98 08/06/23 15:22 Oxygen Delivery Method Room Air 08/06/23 15:22 BMI result Body Mass Index 31.0 On exam, he is anicteric and nontoxic He is having no respiratory distress His abdominal incisions are well healed with no evidence of infection or hernia, abdomen is soft and nontender Assessment & Plan Assessment & Plan (1) S/P laparoscopic sleeve gastrectomy: Code(s): Z98.84 - Bariatric surgery status (2) Class 2 obesity in adult: Code(s): E66.9 - Obesity, unspecified (3) MARY (obstructive sleep apnea): Comment: On CPAP, Dx 2018 at [facility] [place] Code(s): G47.33 - Obstructive sleep apnea (adult) (pediatric) (4) Hypercholesterolemia: Code(s): E78.00 - Pure hypercholesterolemia, unspecified Plan The importance of following the current meal plan as instructed was discussed with the patient. In addition, the importance of exercise was reviewed. Patient seems to understand. He will follow-up with Melony to address a plan to increase his diet. I have recommended that he have a scrambled egg or 1 oz cottage cheese or 1 oz yogurt and advised that he stay away from eats, vegetables in being sit this point since he is only a month out. Patient has no activity restrictions at this point. He would previously worked with Dawson Xiao PA-C, so the patient will follow-up with him in 2 months, sooner if there are any questions or problems. Coding Level of Care Code Global (18410) Diagnoses S/P laparoscopic sleeve gastrectomy Z98.84 Class 2 obesity in adult E66.9 MARY (obstructive sleep apnea) G47.33 Hypercholesterolemia E78.00
== END 2023-08-06 15:26 | disposition home or self-care (01) ==
PROVIDERS: PCP Internal Medicine; Visit Provider Surgery
DX: Z98.84 Bariatric surgery status (principal); E66.9 Obesity, unspecified; G47.33 Obstructive sleep apnea (adult) (pediatric); E78.00 Pure hypercholesterolemia, unspecified
CPT/HCPCS: 99024

== ENCOUNTER → 2023-08-06 14:58 | Outpatient (BNVA) | payer MEDICAID, SELFPAY | PROVIDERS: PCP Internal Medicine; Visit Provider Surgery ==

== ENCOUNTER 2023-10-09 08:17 | Outpatient (AMB) | payer MEDICAID, SELFPAY ==
--- NOTE | 2023-10-09 08:21 | MHC.OFFVISWM ---
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 Presents for 3 month post op visit. Weight today is 200.4 pounds, with a BMI of 29.6. There has been a 58.4 pound weight loss,(initial weight 259 pounds) since starting the program on 01/03/2023 No complaints of nausea, emesis, abdominal pain or reflux. Reports infrequent but normal bowel movements every [] days and uses stool softeners regularly. Taking a [employer] MVI daily. No complaints of pain, BM qod. States he is not consistent w anything. States his weight goal is 170 pounds and beyond that to have a more lean and muscular toned body, increase flexibility and improve exercise function. Present meal plan includes: not measuring quantity 30 gm RTD fairlife shake chicken sausage or 1-2 eggs, or 1/2 can soup, or carb control ham wrap fit crunch bar or rest of shake rest of shake or beef stew w/o potato Drinking 64 oz water daily, no soda or juice ? Exercise routine includes: 4 x in the last month, elliptical/bowflex. [facility] Medical History Diaphragm dysfunction Abnormal chest xray Obesity (BMI 30-39.9) ADHD (attention deficit hyperactivity disorder) Depression Elevated cholesterol Sleep apnea Surgical History Hx of laparoscopic partial gastrectomy Hx of sinus surgery Hx of wisdom tooth extraction Family History Mother No problems noted. Father No problems noted. Brother No problems noted. Daughter ADHD Daughter No problems noted. Son ADHD Social History Household Members: Family Housing: House Are you a primary live in caregiver to a significant other at home: No Do you presently have visiting nurse or other home services: No Alcohol intake: current Alcohol intake frequency: a few times a week Patient Tobacco Use Status: Never used Tobacco Substance Use Type: Marijuana service: No Physical Exam Const General: healthy appearing and no acute distress Resp Effort & Inspection: normal respiratory effort Auscultation: clear to auscultation bilaterally Cardio Rate: regular rate Rhythm: regular rhythm GI Auscultation: normal bowel sounds Extrem General: Yes normal to inspection Assessment & Plan Assessment & Plan (1) S/P laparoscopic sleeve gastrectomy: Code(s): Z98.84 - Bariatric surgery status Plan: Patient wishes to achieve goals of a weight of 170 with increased flexibility strength and muscle tone. We will change his meal plan, utilizing the fairly ready to drink 30 g shake: Half shake Fit crunch bar The other half a shake Meal with 8 forks of protein and 8 forks of vegetables. Exercise routine: Elliptical machine burning 250 calories daily He has started a men's yoga program 5 days per week x6 weeks, both flex 2 days per week and then we will increase both FX after his 6 week yoga program. Return to clinic 3 weeks, text weekly with any questions or concerns. Coding Level of Care Code Est Pt Level 3 (12819) Diagnoses S/P laparoscopic sleeve gastrectomy Z98.84
[2023-10-09 08:30] VITALS: BP 107/69; PULSE 76; TEMP 36.4; O2SAT 98; BMI 29.6
== END 2023-10-09 08:59 | disposition home or self-care (01) ==
PROVIDERS: PCP Internal Medicine; Visit Provider Physician Assistant Surgical
DX: E66.9 Obesity, unspecified (principal); Z68.29 Body mass index [BMI] 29.0-29.9, adult; Z90.3 Acquired absence of stomach [part of]; Z98.84 Bariatric surgery status
CPT/HCPCS: 99213

== ENCOUNTER → 2023-10-09 08:17 | Outpatient (BNVA) | payer MEDICAID, SELFPAY | PROVIDERS: PCP Internal Medicine; Visit Provider Physician Assistant Surgical | DX: Z98.84 Bariatric surgery status (principal) | CPT/HCPCS: 99212 ==

== ENCOUNTER 2023-10-28 08:35 | Outpatient (REF) | payer MEDICAID, SELFPAY ==
[2023-10-28 13:31] LABS: MANUAL DIFF FLAG NO
[2023-10-28 13:51] LABS: Basophils Absolute Auto 0.1 X10*3/uL (0.0-0.2); Basophils Percent Auto 1.1 % (0-2); Eosinophils Absolute Auto 0.1 X10*3/uL (0.0-0.4); Eosinophils Percent Auto 1.1 % (0-4); Hematocrit 43.2 % (42.0-52.0); Hemoglobin 14.3 g/dl (14.0-18.0); Imm Gran Abs Auto 0.01 X10*3/uL (0.00-0.03); Imm Gran Pct Auto 0.2 % (0.0-0.4); Lymphocytes Absolute Auto 2.2 X10*3/uL (1.2-4.9); Lymphocytes Percent Auto 34.7 % (20-40); Mean Corpuscular HGB Conc 33.1 g/dl (31.0-36.0); Mean Corpuscular Hemoglobin 30.1 pg (27.0-33.0); Mean Corpuscular Volume 90.9 fL (80.0-98.0); Mean Platelet Volume 10.8 fL (9.4-12.4); Monocytes Absolute Auto 0.4 X10*3/uL (0.1-1.2); Monocytes Percent Auto 6.2 % (2-11); Neutrophils Absolute Auto 3.6 x10*3/uL (2.0-8.3); Neutrophils Percent Auto 56.7 % (45-73); Platelet Count 275 X10*3/uL (160-400); Red Blood Count 4.75 X10*6/uL (4.60-5.80); Red Cell Distribution Width 13.1 % (11.0-16.0); White Blood Count 6.3 X10*3/uL (4.8-10.8)
[2023-10-28 14:47] LABS: Alanine Aminotransferase 31 U/L (0-40); Alkaline Phosphatase 62 U/L (39-117); Anion Gap 11 (12-20); Aspartate Amino Transferase 27 U/L (5-37); Bilirubin Total 0.7 mg/dL (0.0-1.0); Blood Urea Nitrogen 20 mg/dL (9-16); Calcium 9.4 mg/dL (8.4-10.2); Carbon Dioxide 30 mmol/L (22-29); Chloride 108 mmol/L (96-108); Cholesterol 209 mg/dL (<200); Estimated Glomerular Filt Rate > 60; Glucose Random 78 mg/dL (60-115); HDL Cholesterol 65 mg/dL (>40); LDL Cholesterol Calculated 132 mg/dL (<100); Potassium 4.1 mmol/L (3.3-5.1); Sodium 145 mmol/L (135-145); Total Protein 6.5 g/dL (6.5-8.0); Triglycerides 62 mg/dL (<150)
[2023-10-28 14:54] LABS: Prostate Specific Antigen 0.41 ng/mL (<0.05-4.0)
[2023-11-01 15:58] LABS: Testosterone, Total 198 ng/dL (250-1100)
== END 2023-10-28 08:36 | disposition home or self-care (01) ==
LOC: HO.MANLDS 08:35
PROVIDERS: Visit Provider Internal Medicine
DX: Z00.01 Encounter for general adult medical examination with abnormal findings (principal); E29.1 Testicular hypofunction
CPT/HCPCS: 36415; 80053; 80061; 84153; 84403; 85025